=== PATIENT | female | born 1970 | race Caucasian/White ===

== ENCOUNTER 2022-12-24 10:15 | Outpatient (OUT) | payer OTHER, SELFPAY ==
[2022-12-24 10:48] LABS: Basophils Absolute Auto 0.1 10^3/uL (0.0-0.1); Basophils Percent Auto 1.7 % (0.2-2.0); Eosinophils Absolute Auto 0.4 10^3/uL (0.0-0.7); Hematocrit 41.1 % (36.0-48.0); Hemoglobin 14.1 g/dL (12.0-16.0); Immature Granulocytes Abs Auto 0.02 10^3/uL (0.00-0.03); Immature Granulocytes Pct Auto 0.3 % (0.0-0.5); Lymphocytes Absolute Auto 2.2 10^3/uL (1.2-3.8); Lymphocytes Percent Auto 36.1 % (20.5-60.0); Mean Corpuscular HGB Conc 34.3 g/dL (29.9-35.2); Mean Corpuscular Hemoglobin 31.9 pg (26.7-34.0); Mean Platelet Volume 9.6 fL (9.5-13.5); Monocytes Absolute Auto 0.5 10^3/uL (0.3-0.8); Monocytes Percent Auto 7.9 % (1.7-12.0); Neutrophils Absolute Auto 2.9 10^3/uL (1.4-6.5); Platelet Count 237 10^3/uL (150-450); Red Blood Count 4.42 10^6/uL (4.20-5.40); Red Cell Distribution Width 12.4 % (11.0-15.0)
[2022-12-24 11:31] LABS: Alanine Aminotransferase 66 U/L (14-59); Albumin Globulin Ratio 1.1; Albumin Level 4.3 g/dL (3.4-5.0); Alkaline Phosphatase 49 U/L (46-116); Anion Gap 17.3; Aspartate Amino Transferase 41 U/L (15-37); BUN Creatinine Ratio 17.3; Bilirubin Total 0.5 mg/dL (0.2-1.0); Calcium 9.4 mg/dL (8.5-10.1); Carbon Dioxide 20.6 mmol/L (21.0-32.0); Chloride 102 mmol/L (98-107); Chol HDL Ratio 6.2; Cholesterol 229 mg/dL (<=200); Estimated GFR (African America >60 (>=60); Estimated GFR (Non-African Ame 55 (>=60); Free Thyroxine Index 3.65 (1.30-4.50); Glucose 170 mg/dL (74-106); HDL Cholesterol 37 mg/dL (40-60); Potassium 3.9 mmol/L (3.5-5.1); Sodium 136 mmol/L (136-145); Thyroid Stimulating Hormone 4.021 uIU/mL (0.358-3.740); Total Protein 8.3 g/dL (6.4-8.2); Triglycerides 194 mg/dL (<=150); VLDL CHOLESTEROL 38.8 mg/dL
[2022-12-24 12:17] LABS: Estimated Average Glucose 131 mg/dL; Glycohemoglobin A1C 6.2 % (4.5-6.2)
== END 2022-12-24 10:16 | disposition home or self-care (01) ==
LOC: LAB 10:20
PROVIDERS: PCP Family Medicine; Visit Provider Family Medicine
DX: Z00.00 Encounter for general adult medical examination without abnormal findings (principal); E59 Dietary selenium deficiency
CPT/HCPCS: 36415; 80053; 80061; 82306; 83036; 83540; 84436; 84443; 84479; 85025

== ENCOUNTER 2024-02-10 10:48 | Outpatient (OUT) | payer OTHER, SELFPAY ==
--- NOTE | 2024-02-10 | XR_ITS ---
The [address] [address] Patient Name: MICHELLE SALMERON MRN: [id number] date: 1970 Sex: F Assigned Patient Location: Current Patient Location: Accession/Order Number: [id number] Exam Date: 02/10/2024 10:52 Report Date: 02/12/2024 07:35 At the request of: EVERETT GARCIA Procedure: XR hand RT min 3V PROCEDURE: XR hand RT min 3V COMPARISON: None. HISTORY: RIGHT HAND PAIN FINDINGS: BONES:No fracture, acute abnormality, or significant arthropathy. SOFT TISSUES:Negative. No visible soft tissue swelling. EFFUSION:None visible. OTHER: Negative. XR/XR hand RT min 3V IMPRESSION: No acute radiographic abnormality Electronically authenticated by: KAROL MEREDITH Date: 02/12/2024 07:35
== END 2024-02-10 10:49 | disposition home or self-care (01) ==
LOC: EC 10:48
PROVIDERS: PCP Family Medicine; Visit Provider Orthopaedic Surgery
DX: M79.641 Pain in right hand (principal)
CPT/HCPCS: 73130

== ENCOUNTER 2024-04-25 10:52 | Inpatient (IN) | payer OTHER, SELFPAY ==
[2024-04-25] VITALS (8 sets, daily range): BP systolic 142–155; BP diastolic 62–88; PULSE 80–129; TEMP 37.2–37.5; O2SAT 95–98; BMI 41.6; BMI 36.7
--- NOTE | 2024-04-25 11:43 | ED.GENADUL1 ---
HPI HPI - General Adult General Chief complaint: Skin/Abscess/Foreign Body Stated complaint: ABSCESS ON BACK/PAIN Time Seen by Provider: 04/25/24 11:01 Source: patient Mode of arrival: walk-in Limitations: no limitations History of Present Illness HPI narrative: The patient presented to the ER with a possible abscess to her lower back that she was evaluated for over the last 1 week 4 days ago by her primary care doctor, she mentioned her primary care doctor could not drain the abscess Patient has been on doxycycline for the last 4 days with no improvement Patient denies any nausea vomiting but she has been having a lot of pain almost 9 out of 10 in the back Patient have a history of chronic back pain with some incontinence due to MS but there is no increase in her chronic incontinence Patient denies any weakness numbness tingling down her legs Related Data Home Medications ?Medication ?Instructions ?Recorded ?Confirmed albuterol sulfate 90 mcg/actuation 2 inh inhalation Q6H PRN 04/25/24 04/25/24 aerosol inhaler bronchospasm cefdinir 300 mg capsule 300 mg PO Q12H 04/25/24 04/25/24 citalopram 20 mg tablet 20 mg PO DAILY 04/25/24 04/25/24 clonidine HCl 0.1 mg tablet 0.1 mg PO Q12H 04/25/24 04/25/24 doxycycline monohydrate 100 mg 100 mg PO Q12H 04/25/24 04/25/24 capsule glimepiride 4 mg tablet 4 mg PO DAILY 04/25/24 04/25/24 metformin 500 mg tablet 500 mg PO DAILY 04/25/24 04/25/24 oxybutynin chloride 10 mg 10 mg PO DAILY 04/25/24 04/25/24 tablet,extended release 24 hr pioglitazone 30 mg tablet 30 mg PO DAILY 04/25/24 04/25/24 Allergies Allergy/AdvReac Type Severity Reaction Status Date / Time codeine AdvReac Intermediate Hives Verified 04/25/24 10:55 Opioid HPI Opioid Management Most Recent Opioid Data: Last Pain Scale 8 04/25/24 12:12 04/25/24 Last MAR Pain Assessment 04/25/24 12:12 Review of Systems ROS Status of ROS 10 or more systems reviewed and unremarkable except as noted in history and below PFSH PFSH Social History Little interest or pleasure in doing things: not at all Feeling down, depressed, or hopeless: not at all Exam Narrative Exam Narrative: Nurses notes and vital signs reviewed and patient is not hypoxic.] Back exam: The patient have an area of redness almost 13 cm in diameter with the middle of it is exactly at the L1-L2 kind of level of the back there is no abscess to be drained there is no fluctuation just indurated skin and red, also hot General: Well-appearing and in no apparent distress. Skin: Warm, dry, no pallor noted. No rash. Head: Normocephalic, atraumatic. Neck: Supple, non-tender. Cardiovascular: Regular Rate and Rhythm without murmur, gallop or rub. Respiratory: No accessory muscle use or respiratory distress. Lungs are clear to auscultation, no wheezing, rales or rhonchi Chest Wall: no tenderness Musculoskeletal: normal ROM, no calf or popliteal tenderness, no lower extremity edema/swelling GI: Abdomen is soft, non-distended. Normal bowel sounds. No masses appreciated. No tenderness to palpation. No rebound, guarding, or rigidity noted. Neurological: A&O x4. No cranial nerve dysfunction observed. No truncal ataxia. Moves all extremities. Sensation intact. Psychiatric: Cooperative and interactive. Normal mood and affect. Constitutional Vital Signs, click to edit/add: Last Vital Signs Temp 99.4 F 04/25/24 15:00 Pulse 96 H 04/25/24 15:00 Resp 18 04/25/24 15:00 BP 142/62 H 04/25/24 15:00 Pulse Ox 96 04/25/24 15:00 O2 Del Method Room Air 04/25/24 15:00 Course Vital Signs Vital signs: Vital Signs Temperature 99.0 F 04/25/24 10:55 Pulse Rate 129 H 04/25/24 10:55 Respiratory Rate 18 04/25/24 10:55 Blood Pressure 153/88 H 04/25/24 10:55 Pulse Oximetry 98 04/25/24 10:55 Temperature 99.4 F 04/25/24 15:00 Pulse Rate 96 H 04/25/24 15:00 Respiratory Rate 18 04/25/24 15:00 Blood Pressure 142/62 H 04/25/24 15:00 Pulse Oximetry 96 04/25/24 15:00 Oxygen Delivery Method Room Air 04/25/24 15:00 Medical Decision Making MDM Narrative Medical decision making narrative: The patient upon arrival she is obviously coming with cellulitis with no improvement with p.o. antibiotic she had a blood culture obtained started back on Zosyn CBC shows leukocytosis of 14 chemistry shows no acute significant pathology Treated with Toradol and morphine for pain and she also had a CAT scan of the lumbar spine with IV contrast to make sure there is no abscess The patient will be admitted for IV antibiotic treatment as failed p.o. treatment with outpatient Patient case was discussed with Dr. Cain and he agrees with above-mentioned plan Lab Data Labs: Lab Results 04/25/24 Range/Units 11:46 WBC 14.0 H (4.0-11.0) 10^3/uL RBC 4.07 L (4.20-5.40) 10^6/uL Hgb 12.9 (12.0-16.0) g/dL Hct 37.8 (36.0-48.0) % MCV 92.9 (81.0-99.0) fL MCH 31.7 (26.7-34.0) pg MCHC 34.1 (29.9-35.2) g/dL RDW 11.9 (11.0-15.0) % Plt Count 289 (150-450) 10^3/uL MPV 10.4 (9.5-13.5) fL Neut % (Auto) 60.9 (43.0-75.0) % Lymph % (Auto) 24.9 (20.5-60.0) % [place] % (Auto) 6.8 (1.7-12.0) % Eos % (Auto) 3.3 (0.9-7.0) % Baso % (Auto) 1.2 (0.2-2.0) % Neut # (Auto) 8.5 H (1.4-6.5) 10^3/uL Lymph # (Auto) 3.5 (1.2-3.8) 10^3/uL [place] # (Auto) 1.0 H (0.3-0.8) 10^3/uL Eos # (Auto) 0.5 (0.0-0.7) 10^3/uL Baso # (Auto) 0.2 H (0.0-0.1) 10^3/uL Abs Immat Gran (auto) 0.40 H (0.00-0.03) 10^3/uL Imm/Tot Granulo (auto) 2.9 H (0.0-0.5) % PT 10.9 (9.0-11.6) sec INR 1.03 Sodium 138 (136-145) mmol/L Potassium 4.1 (3.5-5.1) mmol/L Chloride 100 (98-107) mmol/L Carbon Dioxide 20.3 L (21.0-32.0) mmol/L Anion Gap 21.8 BUN 24.0 H (7.0-18.0) mg/dL Creatinine 1.14 H (0.55-1.02) mg/dL Est GFR ( Amer) 60 (>=60 mL/min/1.73m^2) Est GFR (Non-Af Amer) 49 L (>=60 mL/min/1.73m^2) BUN/Creatinine Ratio 21.1 Glucose 368 H (74-106) mg/dL Lactate 1.2 (0.4-2.0) mmol/L Calcium 9.4 (8.5-10.1) mg/dL Total Bilirubin 0.7 (0.2-1.0) mg/dL AST 17 (15-37) U/L ALT 26 (14-59) U/L Alkaline Phosphatase 82 (46-116) U/L Total Protein 7.6 (6.4-8.2) g/dL Albumin 2.8 L (3.4-5.0) g/dL Globulin 4.8 g/dL Albumin/Globulin Ratio 0.6 Discharge Plan Discharge Chief Complaint: Skin/Abscess/Foreign Body Clinical Impression: Cellulitis Qualifiers: Site of cellulitis: trunk Site of cellulitis of trunk: back Qualified Code(s): L03.312 - Cellulitis of back [any part except buttock] Patient Disposition: Admitted As Inpatient Time of Disposition Decision: 15:13
[2024-04-25] MEDS: 0.9 % SODIUM CHLORIDE 1,000 ML 1000 ML IV (12:09)
[2024-04-25 12:10] LABS: Basophils Absolute Auto 0.2 10^3/uL (0.0-0.1); Basophils Percent Auto 1.2 % (0.2-2.0); Eosinophils Absolute Auto 0.5 10^3/uL (0.0-0.7); Eosinophils Percent Auto 3.3 % (0.9-7.0); Hematocrit 37.8 % (36.0-48.0); Hemoglobin 12.9 g/dL (12.0-16.0); Immature Granulocytes Pct Auto 2.9 % (0.0-0.5); Lymphocytes Absolute Auto 3.5 10^3/uL (1.2-3.8); Lymphocytes Percent Auto 24.9 % (20.5-60.0); Mean Corpuscular HGB Conc 34.1 g/dL (29.9-35.2); Mean Corpuscular Hemoglobin 31.7 pg (26.7-34.0); Mean Corpuscular Volume 92.9 fL (81.0-99.0); Mean Platelet Volume 10.4 fL (9.5-13.5); Monocytes Percent Auto 6.8 % (1.7-12.0); Neutrophils Absolute Auto 8.5 10^3/uL (1.4-6.5); Neutrophils Percent Auto 60.9 % (43.0-75.0); Platelet Count 289 10^3/uL (150-450); Red Blood Count 4.07 10^6/uL (4.20-5.40); Red Cell Distribution Width 11.9 % (11.0-15.0)
[2024-04-25] MEDS: KETOROLAC TROMETHAMINE 30 MG/ML VIAL 15 MG IVP ×2 (12:11→21:29)
[2024-04-25] MEDS: MORPHINE SULFATE 2 MG/ML SYRINGE IV ×2 (12:12→20:00)
[2024-04-25] MEDS: PIPERACILLIN SODIUM/TAZOBACTAM 4.5 GM in 0.9 % SODIUM CHLORIDE 50 ML IV (12:15)
[2024-04-25 12:20] LABS: INR 1.03; Prothrombin Time 10.9 sec (9.0-11.6)
[2024-04-25 12:27] LABS: Alanine Aminotransferase 26 U/L (14-59); Albumin Globulin Ratio 0.6; Albumin Level 2.8 g/dL (3.4-5.0); Alkaline Phosphatase 82 U/L (46-116); Anion Gap 21.8; Aspartate Amino Transferase 17 U/L (15-37); BUN Creatinine Ratio 21.1; Bilirubin Total 0.7 mg/dL (0.2-1.0); Calcium 9.4 mg/dL (8.5-10.1); Carbon Dioxide 20.3 mmol/L (21.0-32.0); Chloride 100 mmol/L (98-107); Estimated GFR (African America 60 (>=60 mL/min/1.73m^2); Estimated GFR (Non-African Ame 49 (>=60 mL/min/1.73m^2); Globulin 4.8 g/dL; Glucose 368 mg/dL (74-106); Potassium 4.1 mmol/L (3.5-5.1); Sodium 138 mmol/L (136-145); Total Protein 7.6 g/dL (6.4-8.2)
[2024-04-25 12:30] LABS: Lactate/Lactic Acid 1.2 mmol/L (0.4-2.0)
--- NOTE | 2024-04-25 12:33 | CT_ITS ---
The [address] [address] Patient Name: MICHELLE SALMERON MRN: [id number] date: 1970 Sex: F Assigned Patient Location: ER Current Patient Location: ER Accession/Order Number: [id number] Exam Date: 04/25/2024 13:05 Report Date: 04/25/2024 14:44 At the request of: RICK MCKOY Procedure: CT lumbar spine w con EXAM: CT lumbar spine w con HISTORY: Abscess and cellulitis at the upper lumbar area. COMPARISON: None. TECHNIQUE: Dose reduction techniques were achieved by using automated exposure control and/or adjustment of mA and/or kV according to patient size and/or use of iterative reconstruction technique. CT of the lumbar spine with contrast. FINDINGS: Vertebral body height is preserved. Anterolisthesis of L5 on S1 measuring 1.4 cm from bilateral L5 pars defects. Bilateral severe L5-S1 neural foraminal narrowing. No significant neural foraminal narrowing extending from T11-T12 through L4-L5. Transitional S1 vertebral body with rudimentary S1-S2 disc. No acute fractures. Mild degeneration of the sacroiliac joints. Atherosclerotic calcification of the abdominal aorta. Nonspecific subcutaneous soft tissue edema posterior to the upper lumbar spine, may represent cellulitis. No abscess. CT/CT lumbar spine w con IMPRESSION: 1. No acute fracture. 2. Anterolisthesis of L5 on S1 measuring 1.4 cm from bilateral L5 pars defects. 3. Bilateral severe L5-S1 neural foraminal narrowing. 4. Nonspecific subcutaneous soft tissue edema posterior to the upper lumbar spine, may represent cellulitis. No abscess. 5. Other findings as described. Electronically authenticated by: DIYA PAYNE Date: 04/25/2024 14:44
[2024-04-25] MEDS: VANCOMYCIN HCL 1,000 MG in 0.9 % SODIUM CHLORIDE 250 ML 250 MG IV (14:23)
[2024-04-25] MEDS: LACTATED RINGER'S SOLUTION 1,000 ML 125 ML IV (17:10)
[2024-04-25] MEDS: ACETAMINOPHEN 325 MG TABLET 650 MG PO (19:56)
[2024-04-25 20:03] LABS: Glucometer 387 mg/dL (74-106)
[2024-04-25] MEDS: INSULIN ASPART 300 UNIT/3 ML PEN SUBQ (20:07)
[2024-04-25] MEDS: CLONIDINE HCL 0.1 MG TABLET PO (21:30)
--- NOTE | 2024-04-25 22:55 | P.HP_ITS ---
HPI H&P: HPI History of Present Illness Chief complaint: ABSCESS ON BACK/PAIN CELLULITIS TO BACK Narrative: 53 y o female with hx of T2DM, HTN and Major Depression presented to a skin lesion on her back that started as a small bump about pea sized about a week ago. It progressively got worse with increase in size, induration, tenderness along with purulent discharge. She saw her PCP 4 days ago who performed outpatient I&D with mild purulent discharge and prescribed her oral Doxycycline for Cellulitis. Over the past 4 days, her pain, size of erythema got worse and is now about 15 cm in diameter, circular in shape, with discrete margins. Patient denies skin trauma, insect bite and prior hx of Cellulitis. Patient repots that last night she was feeling febrile and had chills. She denies nausea or vomiting. Work up in ED revealed sinus tachycardia along with leukocytosis. Given her hx of T2DM, and the fact that she failed outpatient oral abx, she was admitted for observation for IVF and IV abx. Opioid HPI Opioid Management Most Recent Pain and Opioid Data: Last Pain Scale 6 04/25/24 21:29 04/25/24 Last Pain Assessment 04/25/24 22:00 Last ORT Total Score 1 04/25/24 16:20 04/25/24 Last ORT Risk Category Low Risk 04/25/24 16:20 04/25/24 Review of Systems ROS Status of ROS 10 or more systems reviewed and unremark able except as noted in history and below [facility] Medical History (Updated 04/25/24 @ 23:04 by Shaikh Ant MD) Depression ?F32.A - Depression, unspecified (ICD-10) Multiple sclerosis ?G35 - Multiple sclerosis (ICD-10) Diabetes ?E11.9 - Type 2 diabetes mellitus without complications (ICD-10) Hypertension ?I10 - Essential (primary) hypertension (ICD-10) Surgical History (Updated 04/25/24 @ 16:29 by Arleen Srinivasan) History of cholecystectomy ?Z90.49 - Acquired absence of other specified parts of digestive tract (ICD- 10) Family History (Updated 04/25/24 @ 16:30 by Arleen Srinivasan) Father Family history of CHF (congestive heart failure) Family history of diabetes mellitus Family history of hypertension Family history of myocardial infarction Family history of stroke Brother Family history of cancer Family history of diabetes mellitus Family history of hypertension Mother Family history of cancer Family history of diabetes mellitus Family history of hypertension Grandfather Family history of stroke Social History (Updated 04/25/24 @ 16:31 by Arleen Srinivasan) Within the past year, how often did you have a drink containing alcohol: never Score interpretation: A score less than 3 is consistent with normal alcohol consumption. Smoking status: Never smoker Non-prescribed substance use: cannabis (any form) Non-prescribed substance use details: edibles Previous occupational history: disabled Highest level of school completed/degree received: some college, no degree Are you now , , , , never or living with a partner: In a typical week, how many times do you talk on the telephone with family, friends, or neighbors: 3 or more times per week How often do you get together with friends or relatives: 3 or more times per week How often do you attend druze or rastafarian services: never Do you belong to any clubs or organizations such as druze groups unions, [employer] or athletic groups, or school groups: no Total score: 1 Score interpretation: A score of less than or equal to 1 indicates the most socially isolated. Little interest or pleasure in doing things: not at all Feeling down, depressed, or hopeless: not at all Feel stressed/tense/nervous/anxious/difficulty sleeping: not at all Meds Home Medications and Allergies Home Medications ?Medication ?Instructions ?Recorded ?Confirmed ?Type albuterol sulfate 90 mcg/actuation 2 inh inhalation Q6H PRN 04/25/24 04/25/24 History aerosol inhaler bronchospasm cefdinir 300 mg capsule 300 mg PO Q12H 04/25/24 04/25/24 History citalopram 20 mg tablet 20 mg PO DAILY 04/25/24 04/25/24 History clonidine HCl 0.1 mg tablet 0.1 mg PO Q12H 04/25/24 04/25/24 History doxycycline monohydrate 100 mg 100 mg PO Q12H 04/25/24 04/25/24 History capsule glimepiride 4 mg tablet 4 mg PO DAILY 04/25/24 04/25/24 History metformin 500 mg tablet 500 mg PO DAILY 04/25/24 04/25/24 History oxybutynin chloride 10 mg 10 mg PO DAILY 04/25/24 04/25/24 History tablet,extended release 24 hr pioglitazone 30 mg tablet 30 mg PO DAILY 04/25/24 04/25/24 History Allergies Allergy/AdvReac Type Severity Reaction Status Date / Time codeine AdvReac Intermediate Hives Verified 04/25/24 10:55 Exam Constitutional Vital Signs, click to edit/add: Last Vital Signs Temp 99.1 F 04/25/24 21:36 Pulse 80 04/25/24 20:00 Resp 18 04/25/24 20:00 BP 155/65 H 04/25/24 21:30 Pulse Ox 95 04/25/24 20:46 O2 Del Method Room Air 04/25/24 20:46 Documenting provider has reviewed patient's vital signs: yes Common normals: no apparent distress and oriented x3 General appearance: cooperative Eye Common normals: conjunctivae normal and no scleral icterus Conjunctiva: conjunctiva(e) normal Respiratory Common normals: normal respiratory effort and clear to auscultation bilaterally Effort & inspection: able to speak in complete sentences Auscultation: clear to auscultation bilaterally Cardio Common normals: regular rate, S1 normal heart sound and S2 normal heart sound Rate: regular rate Heart sounds: S1 normal and S2 normal GI Common normals: Normal to inspection, nondistended, normoactive bowel sounds present, soft to palpation, non-tender and no hepatosplenomegaly Palpation: soft and no hepatosplenomegaly Back & Pelvis General back: erythema, warmth and tenderness Other: Circular discreet region over upper lumbar region in midline. Area is about 15 cm in diameter, tender, with indurated skin. Extremity Common normals: no clubbing, cyanosis or edema Neuro Common normals: oriented x3, moves all extremities and no focal motor deficits Psych Common normals: mental status grossly normal, denies hallucinations, denies homicidal ideation and denies suicidal ideation Results Labs Labs: Short CBC 04/25/24 Range/Units 11:46 WBC 14.0 H (4.0-11.0) 10^3/uL Hgb 12.9 (12.0-16.0) g/dL Hct 37.8 (36.0-48.0) % Plt Count 289 (150-450) 10^3/uL BMP 04/25/24 11:46 Sodium 138 Potassium 4.1 Chloride 100 Carbon Dioxide 20.3 L BUN 24.0 H Creatinine 1.14 H Glucose 368 H Calcium 9.4 Liver Function 04/25/24 Range/Units 11:46 Total Bilirubin 0.7 (0.2-1.0) mg/dL AST 17 (15-37) U/L ALT 26 (14-59) U/L Alkaline Phosphatase 82 (46-116) U/L Albumin 2.8 L (3.4-5.0) g/dL Assessment and Plan Assessment and Plan (1) Cellulitis: Assessment and Plan: Cellulitis of back, worse despite treatment with oral abx. Patient reports fever, chills. Has leukocytosis with WBC count of 14k. Patient started on IV vancomycin/zosyn. No abscess on CT scan. C/w IVF. F/u blood cx. Qualifiers: Site of cellulitis: trunk Site of cellulitis of trunk: back Qualified Code(s): L03.312 - Cellulitis of back [any part except buttock] (2) Diabetes: Assessment and Plan: On oral hypoglycemics as outpatient. SSI while inpatient. 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 IV hydralazine as needed. Qualifiers: Hypertension type: primary hypertension Qualified Code(s): I10 - Essential (primary) hypertension (4) Depression: Assessment and Plan: Stable mood. No SI/HI. Qualifiers: Depression Type: major depressive disorder Major depression recurrence: recurrent Active/Remission status: in full remission Qualified Code(s): F33.42 - Major depressive disorder, recurrent, in full remission
[2024-04-26] MEDS: PIPERACILLIN SODIUM/TAZOBACTAM 3.375 GM in 0.9 % SODIUM CHLORIDE 50 ML IV ×4 (00:21→22:44)
[2024-04-26] MEDS: LACTATED RINGER'S SOLUTION 1,000 ML 125 ML IV ×2 (00:22→08:35)
[2024-04-26 04:44] VITALS: BP 138/90; PULSE 111; TEMP 37.4; O2SAT 94
[2024-04-26 06:18] LABS: Basophils Absolute Auto 0.1 10^3/uL (0.0-0.1); Eosinophils Absolute Auto 0.5 10^3/uL (0.0-0.7); Hemoglobin 10.9 g/dL (12.0-16.0); Immature Granulocytes Abs Auto 0.33 10^3/uL (0.00-0.03); Immature Granulocytes Pct Auto 2.8 % (0.0-0.5); Lymphocytes Absolute Auto 4.1 10^3/uL (1.2-3.8); Lymphocytes Percent Auto 33.9 % (20.5-60.0); Mean Corpuscular HGB Conc 34.1 g/dL (29.9-35.2); Mean Corpuscular Hemoglobin 31.6 pg (26.7-34.0); Mean Corpuscular Volume 92.8 fL (81.0-99.0); Monocytes Absolute Auto 0.8 10^3/uL (0.3-0.8); Monocytes Percent Auto 6.9 % (1.7-12.0); Neutrophils Absolute Auto 6.2 10^3/uL (1.4-6.5); Neutrophils Percent Auto 51.4 % (43.0-75.0); Platelet Count 190 10^3/uL (150-450); Red Blood Count 3.45 10^6/uL (4.20-5.40)
[2024-04-26 06:40] LABS: Alanine Aminotransferase 31 U/L (14-59); Albumin Globulin Ratio 0.5; Albumin Level 2.1 g/dL (3.4-5.0); Alkaline Phosphatase 79 U/L (46-116); Anion Gap 15.5; Aspartate Amino Transferase 23 U/L (15-37); BUN Creatinine Ratio 23.8; Bilirubin Total 0.5 mg/dL (0.2-1.0); Calcium 8.7 mg/dL (8.5-10.1); Carbon Dioxide 21.7 mmol/L (21.0-32.0); Chloride 104 mmol/L (98-107); Estimated GFR (African America >60 (>=60 mL/min/1.73m^2); Estimated GFR (Non-African Ame 57 (>=60 mL/min/1.73m^2); Globulin 4.1 g/dL; Glucose 270 mg/dL (74-106); Potassium 4.2 mmol/L (3.5-5.1); Sodium 137 mmol/L (136-145); Total Protein 6.2 g/dL (6.4-8.2)
[2024-04-26] MEDS: MORPHINE SULFATE 2 MG/ML SYRINGE IV (07:41)
[2024-04-26] MEDS: CITALOPRAM HYDROBROMIDE 20 MG TABLET PO (08:35)
[2024-04-26] MEDS: OXYBUTYNIN CHLORIDE 5 MG TAB XL 10 MG PO (08:35)
[2024-04-26] MEDS: CLONIDINE HCL 0.1 MG TABLET PO ×2 (08:35→21:35)
[2024-04-26] MEDS: ENOXAPARIN SODIUM 40 MG/0.4 ML SYRINGE SUBQ (08:35)
[2024-04-26] MEDS: INSULIN ASPART 300 UNIT/3 ML PEN SUBQ ×3 (08:42→16:35)
[2024-04-26 08:52] VITALS: BP 138/82; PULSE 97; TEMP 37; O2SAT 98
--- NOTE | 2024-04-26 09:01 | P.PN_ITS ---
Progress Note: Subjective Subjective Interval history: Patient significant pain in her back, erythema appears to be slightly spread from initial admission Exam Constitutional Vital Signs, click to edit/add: Last Vital Signs Temp 98.6 F 04/26/24 08:52 Pulse 97 H 04/26/24 08:52 Resp 18 04/26/24 08:52 BP 138/82 04/26/24 08:52 Pulse Ox 98 04/26/24 08:52 O2 Del Method Room Air 04/26/24 08:52 Documenting provider has reviewed patient's vital signs: yes Common normals: apparent distress (Mild to moderate painful distress with movement) Chest Common normals: inspection of chest normal Respiratory Common normals: normal respiratory effort and no retractions Cardio Common normals: regular rate and regular rhythm GI Common normals: Normal to inspection, nondistended, normoactive bowel sounds present and soft to palpation Back & Pelvis Common normals: CVA tenderness (Area of previously drained abscess, significant erythema surrounding 5 ) Progress Note: Objective Labs Labs: Short CBC 04/25/24 04/26/24 Range/Units 11:46 06:06 WBC 14.0 H 12.0 H (4.0-11.0) 10^3/uL Hgb 12.9 10.9 L (12.0-16.0) g/dL Hct 37.8 32.0 L (36.0-48.0) % Plt Count 289 190 (150-450) 10^3/uL BMP 04/25/24 04/26/24 11:46 06:06 Sodium 138 137 Potassium 4.1 4.2 Chloride 100 104 Carbon Dioxide 20.3 L 21.7 BUN 24.0 H 24.0 H Creatinine 1.14 H 1.01 Glucose 368 H 270 H Calcium 9.4 8.7 Liver Function 04/25/24 04/26/24 Range/Units 11:46 06:06 Total Bilirubin 0.7 0.5 (0.2-1.0) mg/dL AST 17 23 (15-37) U/L ALT 26 31 (14-59) U/L Alkaline Phosphatase 82 79 (46-116) U/L Albumin 2.8 L 2.1 L (3.4-5.0) g/dL Progress Note: A&P Assessment and Plan (1) Cellulitis: Qualifiers: Site of cellulitis: trunk Site of cellulitis of trunk: back Qualified Code(s): L03.312 - Cellulitis of back [any part except buttock] (2) Diabetes: Qualifiers: Diabetes mellitus complication status: without complication 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 Having increasing pain, leukocytosis, uncontrolled hypertension, tachycardia, uncontrolled diabetes mellitus, no significant increase in swelling presented to emergency room and found to have significant progression of cellulitis from the initial sebaceous cyst drainage. She has been on cefdinir and doxycycline, failed outpatient management, also mild dehydration Cellulitis with significant leukocytosis: Will place [place] around cellulitis, appears to be maybe slightly worse than admission. Try to obtain culture, unable to obtain in office. Continue with current antibiotics, white blood cell count improved Diabetes: Currently poorly controlled, secondary to the cellulitis and progression despite antibiotic therapy, increase sliding scale, restart home medications Hypertension: Poorly controlled on admission-improved currently. Mild dehydration-BUN and creatinine slightly elevated on admission improved today. Will saline lock, may need to reinstitute fluid therapy based on sugars and renal function affected by IV antibiotic choices Depression: Continue with home medications Morbid obesity-diet management Moderate protein calorie malnutrition-patient has had some significant weight loss recently, low albumin currently. Diet management Asthma-continue with home medications Bladder spasms-continue with home medications Admission status: Patient was placed in observational status yesterday. Erythema appears to be slightly spread and pain is not improved, having failed the outpatient time. Will change patient to inpatient status she is likely here 2-3 more days. Medically necessary treatment will span more than 2 midnights.
[2024-04-26] MEDS: KETOROLAC TROMETHAMINE 30 MG/ML VIAL 15 MG IVP ×3 (10:17→21:49)
[2024-04-26] MEDS: PIOGLITAZONE 15 MG TABLET 30 MG PO (10:17)
[2024-04-26 10:28] VITALS: O2SAT 97
[2024-04-26 12:34] LABS: Glucometer 203 mg/dL (74-106)
[2024-04-26] MEDS: VANCOMYCIN HCL 1,000 MG in 0.9 % SODIUM CHLORIDE 250 ML 250 MG IV (15:11)
[2024-04-26 15:26] VITALS: BP 140/65; PULSE 98; TEMP 37.6; O2SAT 95
[2024-04-26 16:40] LABS: Glucometer 309 mg/dL (74-106)
[2024-04-26] MEDS: OXYCODONE HCL 5 MG TABLET PO (18:28)
[2024-04-26] MEDS: ACETAMINOPHEN 500 MG TABLET 1000 MG PO (18:28)
[2024-04-26 19:46] VITALS: BP 107/72; PULSE 87; TEMP 36.8; O2SAT 95
[2024-04-26 19:53] VITALS: O2SAT 99
[2024-04-26 19:56] LABS: Glucometer 105 mg/dL (74-106)
[2024-04-27] VITALS (7 sets, daily range): BP systolic 136–185; BP diastolic 77–100; PULSE 78–97; TEMP 36.6–37.1; O2SAT 95–98; BMI 36.7
[2024-04-27] MEDS: VANCOMYCIN HCL 1,000 MG in 0.9 % SODIUM CHLORIDE 250 ML 200 MG IV (01:26)
[2024-04-27] MEDS: KETOROLAC TROMETHAMINE 30 MG/ML VIAL 15 MG IVP (02:51)
[2024-04-27] MEDS: PIPERACILLIN SODIUM/TAZOBACTAM 3.375 GM in 0.9 % SODIUM CHLORIDE 50 ML IV ×3 (05:21→22:23)
[2024-04-27 06:17] LABS: Basophils Absolute Auto 0.1 10^3/uL (0.0-0.1); Basophils Percent Auto 1.2 % (0.2-2.0); Eosinophils Absolute Auto 0.4 10^3/uL (0.0-0.7); Eosinophils Percent Auto 4.7 % (0.9-7.0); Hematocrit 32.4 % (36.0-48.0); Hemoglobin 10.9 g/dL (12.0-16.0); Immature Granulocytes Pct Auto 4.3 % (0.0-0.5); Lymphocytes Absolute Auto 3.3 10^3/uL (1.2-3.8); Lymphocytes Percent Auto 35.6 % (20.5-60.0); Mean Corpuscular HGB Conc 33.6 g/dL (29.9-35.2); Mean Corpuscular Hemoglobin 31.5 pg (26.7-34.0); Mean Corpuscular Volume 93.6 fL (81.0-99.0); Monocytes Absolute Auto 0.6 10^3/uL (0.3-0.8); Monocytes Percent Auto 6.7 % (1.7-12.0); Neutrophils Absolute Auto 4.4 10^3/uL (1.4-6.5); Neutrophils Percent Auto 47.5 % (43.0-75.0); Platelet Count 222 10^3/uL (150-450); Red Blood Count 3.46 10^6/uL (4.20-5.40); Red Cell Distribution Width 12.1 % (11.0-15.0); White Blood Count 9.3 10^3/uL (4.0-11.0)
[2024-04-27 06:37] LABS: Anion Gap 14.9; Calcium 8.2 mg/dL (8.5-10.1); Carbon Dioxide 24.2 mmol/L (21.0-32.0); Chloride 107 mmol/L (98-107); Estimated GFR (African America 56 (>=60 mL/min/1.73m^2); Estimated GFR (Non-African Ame 47 (>=60 mL/min/1.73m^2); Glucose 221 mg/dL (74-106); Potassium 4.1 mmol/L (3.5-5.1); Sodium 142 mmol/L (136-145)
--- NOTE | 2024-04-27 07:39 | P.PN_ITS ---
Progress Note: Subjective Subjective Interval history: Patient notes still drainage and some pain in the back, itching more today. Exam Constitutional Vital Signs, click to edit/add: Last Vital Signs Temp 97.9 F 04/27/24 03:00 Pulse 85 04/27/24 03:00 Resp 18 04/27/24 03:00 BP 136/77 04/27/24 03:00 Pulse Ox 98 04/27/24 03:00 O2 Del Method Room Air 04/27/24 03:00 Documenting provider has reviewed patient's vital signs: yes Common normals: no apparent distress Respiratory Common normals: normal respiratory effort Cardio Common normals: regular rate and regular rhythm GI Common normals: Normal to inspection, nondistended, normoactive bowel sounds present Back & Pelvis Common normals: CVA tenderness (Wound now with erythema just inside the line of demarcation, improved ) Progress Note: Objective Labs Labs: Short CBC 04/27/24 Range/Units 06:06 WBC 9.3 (4.0-11.0) 10^3/uL Hgb 10.9 L (12.0-16.0) g/dL Hct 32.4 L (36.0-48.0) % Plt Count 222 (150-450) 10^3/uL BMP 04/27/24 06:06 Sodium 142 Potassium 4.1 Chloride 107 Carbon Dioxide 24.2 BUN 30.0 H Creatinine 1.20 H Glucose 221 H Calcium 8.2 L Progress Note: A&P Assessment and Plan (1) Cellulitis: Qualifiers: Site of cellulitis: trunk Site of cellulitis of trunk: back Qualified Code(s): L03.312 - Cellulitis of back [any part except buttock] (2) Diabetes: Qualifiers: Diabetes mellitus type: type 2 Diabetes mellitus mcc insulin use: without mcc use Diabetes mellitus complication status: without complication Qualified Code(s): E11.9 - Type 2 diabetes mellitus without complications (3) Hypertension: Qualifiers: Hypertension type: primary hypertension Qualified Code(s): I10 - Essential (primary) hypertension (4) Depression: Qualifiers: Depression Type: major depressive disorder Major depression recurrence: recurrent Active/Remission status: in full remission Qualified Code(s): F33.42 - Major depressive disorder, recurrent, in full remission Plan Admission findings: Patient with previously drained sebaceous cyst. Having increasing pain, leukocytosis, uncontrolled hypertension, tachycardia, uncontrolled diabetes mellitus, no significant increase in swelling presented to emergency room and found to have significant progression of cellulitis from the initial sebaceous cyst drainage. She has been on cefdinir and doxycycline, failed outpatient management, also mild dehydration Cellulitis with significant leukocytosis: Appears improved, maintain current antibiotics, given failed outpatient oral antibiotics of cefdinir and doxycycline, maintain Zosyn and vancomycin Diabetes: Currently poorly controlled, but better with restarting home med ications Hypertension: Poorly controlled on admission-improved currently. Mild dehydration-BUN and creatinine slightly elevated on admission and again today. Will flush with 1 L normal saline, DC Toradol Depression: Continue with home medications Morbid obesity-diet management Moderate protein calorie malnutrition-patient has had some significant weight loss recently, low albumin currently. Diet management Asthma-continue with home medications Bladder spasms-continue with home medications Admission status: Patient was placed in observational status yesterday. Erythema appears to be slightly spread and pain is not improved, having failed the outpatient time. Will change patient to inpatient status she is likely here 2-3 more days. Medically necessary treatment will span more than 2 midnights.
[2024-04-27] MEDS: PIOGLITAZONE 15 MG TABLET 30 MG PO (08:11)
[2024-04-27] MEDS: CLONIDINE HCL 0.1 MG TABLET PO ×2 (08:12→22:27)
[2024-04-27] MEDS: CITALOPRAM HYDROBROMIDE 20 MG TABLET PO (08:12)
[2024-04-27] MEDS: OXYBUTYNIN CHLORIDE 5 MG TAB XL 10 MG PO (08:12)
[2024-04-27] MEDS: GLIMEPIRIDE 2 MG TABLET 4 MG PO (08:12)
[2024-04-27] MEDS: 0.9 % SODIUM CHLORIDE 1,000 ML 500 ML IV (08:14)
[2024-04-27] MEDS: FLU VAC QS 2024(6MS UP)CEL/PF 60 MCG/0.5 ML SYRINGE IM (08:16)
--- NOTE | 2024-04-27 09:07 | W.PM.WC_ITS ---
Wound Consult Note Assessment and Plan (1) Cellulitis: Qualifiers: Site of cellulitis: trunk Site of cellulitis of trunk: back Qualified Code(s): L03.312 - Cellulitis of back [any part except buttock] (2) Diabetes: Qualifiers: Diabetes mellitus type: type 2 Diabetes mellitus long term care pharmacist insulin use: without long term care pharmacist use Diabetes mellitus complication status: without complication Qualified Code(s): E11.9 - Type 2 diabetes mellitus without com plications (3) Hypertension: Qualifiers: Hypertension type: primary hypertension Qualified Code(s): I10 - Essential (primary) hypertension (4) Depression: Qualifiers: Depression Type: major depressive disorder Major depression recurrence: recurrent Active/Remission status: in full remission Qualified Code(s): F33.42 - Major depressive disorder, recurrent, in full remission Plan Consult: Back wound Patient evaluated to for treatment of back wound. Patient states area started as a small area that was soft. Her doctor lanced it and then it got worse. Per her pictures and area that was marked on her back to show cellulitis, it has improved somewhat with size and erythema. It is draining a white, thick drainage. She does not want anything to cover it as the area is very tender. She has been using warm compresses and a heating pad and states this helps. Overall area measures [id number]. Did not probe area that is draining as it is a pin hole size currently. Patient is currently receiving IV antibiotics. No specific wound care recommended other than covering area with gauze if it begins to drain more just to keep things clean and protected from environment. Phillip Liriano RN, CWON
[2024-04-27 12:13] LABS: Glucometer 207 mg/dL (74-106)
[2024-04-27 14:41] LABS: Vancomycin Trough 11.4 ug/mL (5.0-20.0)
[2024-04-27] MEDS: VANCOMYCIN HCL 1,000 MG in 0.9 % SODIUM CHLORIDE 250 ML 250 MG IV (15:07)
[2024-04-27] MEDS: OXYCODONE HCL 5 MG TABLET PO ×2 (15:10→20:38)
[2024-04-27 16:09] LABS: Glucometer 172 mg/dL (74-106)
[2024-04-27] MEDS: INSULIN ASPART 300 UNIT/3 ML PEN SUBQ (22:31)
[2024-04-27 22:42] LABS: Glucometer 214 mg/dL (74-106)
[2024-04-28] VITALS: BP 165/89; PULSE 70; TEMP 36.8; O2SAT 97
[2024-04-28] MEDS: OXYCODONE HCL 5 MG TABLET PO (03:18)
[2024-04-28] MEDS: VANCOMYCIN HCL 1,250 MG in 0.9 % SODIUM CHLORIDE 250 ML 250 MG IV ×2 (03:19→13:15)
[2024-04-28] MEDS: PIPERACILLIN SODIUM/TAZOBACTAM 3.375 GM in 0.9 % SODIUM CHLORIDE 50 ML IV ×2 (05:01→13:15)
[2024-04-28 05:06] VITALS: BP 136/84; PULSE 94; TEMP 36.4; O2SAT 95
[2024-04-28 06:54] LABS: Basophils Absolute Auto 0.1 10^3/uL (0.0-0.1); Basophils Percent Auto 0.9 % (0.2-2.0); Eosinophils Absolute Auto 0.5 10^3/uL (0.0-0.7); Eosinophils Percent Auto 5.3 % (0.9-7.0); Hematocrit 31.1 % (36.0-48.0); Hemoglobin 10.5 g/dL (12.0-16.0); Immature Granulocytes Abs Auto 0.33 10^3/uL (0.00-0.03); Immature Granulocytes Pct Auto 3.8 % (0.0-0.5); Lymphocytes Absolute Auto 3.5 10^3/uL (1.2-3.8); Mean Corpuscular HGB Conc 33.8 g/dL (29.9-35.2); Mean Corpuscular Hemoglobin 31.7 pg (26.7-34.0); Mean Platelet Volume 10.2 fL (9.5-13.5); Monocytes Absolute Auto 0.6 10^3/uL (0.3-0.8); Monocytes Percent Auto 6.9 % (1.7-12.0); Neutrophils Absolute Auto 3.8 10^3/uL (1.4-6.5); Neutrophils Percent Auto 43.1 % (43.0-75.0); Platelet Count 229 10^3/uL (150-450); Red Blood Count 3.31 10^6/uL (4.20-5.40); Red Cell Distribution Width 12.1 % (11.0-15.0); White Blood Count 8.7 10^3/uL (4.0-11.0)
[2024-04-28 07:06] LABS: Anion Gap 14.4; BUN Creatinine Ratio 17.6; Calcium 8.1 mg/dL (8.5-10.1); Carbon Dioxide 24.3 mmol/L (21.0-32.0); Chloride 108 mmol/L (98-107); Estimated GFR (African America >60 (>=60 mL/min/1.73m^2); Estimated GFR (Non-African Ame 56 (>=60 mL/min/1.73m^2); Glucose 151 mg/dL (74-106); Potassium 3.7 mmol/L (3.5-5.1); Sodium 143 mmol/L (136-145)
[2024-04-28 07:24] LABS: Glucometer 151 mg/dL (74-106)
[2024-04-28 07:46] VITALS: BP 151/91; PULSE 94; TEMP 37.2; O2SAT 97
--- NOTE | 2024-04-28 07:56 | P.DS_ITS ---
DS: Providers Provider Date of admission: 04/25/24 16:07 Primary care physician: Sohan Elizondo MD Consults: 04/26/24 08:52 Consult to Wound Care Routine Consulting Provider: Phillip Liriano Reason for consultation: wound DS: Diagnosis Discharge Diagnosis (1) Cellulitis: Qualifiers: Site of cellulitis: trunk Site of cellulitis of trunk: back Qualified Code(s): L03.312 - Cellulitis of back [any part except buttock] (2) Diabetes: Qualifiers: Diabetes mellitus complication status: without complication Diabetes mellitus long-term insulin use: without long-term use Diabetes mellitus type: type 2 Qualified Code(s): E11.9 - Type 2 diabetes mellitus without complications (3) Hypertension: Qualifiers: Hypertension type: primary hypertension Qualified Code(s): I10 - Essential (primary) hypertension (4) Depression: Qualifiers: Active/Remission status: in full remission Depression Type: major depressive disorder Major depression recurrence: recurrent Qualified Code(s): F33.42 - Major depressive disorder, recurrent, in full remission Plan Admission findings: Patient with previously drained sebaceous cyst. Having increasing pain, leukocytosis, uncontrolled hypertension, tachycardia, uncontrolled diabetes mellitus, no significant increase in swelling presented to emergency room and found to have significant progression of cellulitis from the initial sebaceous cyst drainage. She has been on cefdinir and doxycycline, failed outpatient management, also mild dehydration Cellulitis with significant leukocytosis: Appears improved, maintain current antibiotics, given failed outpatient oral antibiotics of cefdinir and doxycycline, maintain Zosyn and vancomycin Diabetes: Currently poorly controlled, but better with restarting home medications Hypertension: Poorly controlled on admission-improved currently. Mild dehydration-BUN and creatinine slightly elevated on admission and again today. Will flush with 1 L normal saline, DC Toradol Depression: Continue with home medications Morbid obesity-diet management Moderate protein calorie malnutrition-patient has had some significant weight loss recently, low albumin currently. Diet management Asthma-continue with home medications Bladder spasms-continue with home medications Admission status: Patient was placed in observational status yesterday. Erythema appears to be slightly spread and pain is not improved, having failed the outpatient time. Will change patient to inpatient status she is likely here 2-3 more days. Medically necessary treatment will span more than 2 midnights. ? DS: Summary Hospital Course Hospital Course: Patient was seen and evaluated in the office several days prior to admission. She had a boil on her back that was lanced. She had no surrounding erythema just the boil itself. Purulent drainage was expressed, missed an opportunity to get cultures patient had syncopal episode culture not sent to hospital. Patient was started on cefdinir and doxycycline. Patient increasing pain, drainage persisted. With pain worsening she presented to the emergency room found to have cellulitis that was progressing from the area of the sebaceous cyst infection. CT scan showed no abscess. With failing outpatient treatment she was admitted for IV antibiotics Zosyn and vancomycin. She is tolerated those to currently. Her erythema is now is inside line of demarcation and her right blood cell count has returned to normal. At this point in time should be discharged to home with 7 days of IV antibiotics until cultures have returned. To try to make it once a day we will try vancomycin once a day and levofloxacin. Cultures hopefully back tomorrow and we will make further adjustments at that time. Medications see list. See me in the office in 3 days. Status at Discharge Overall status at discharge: patient is not back to baseline Time Spent with Patient Time attestation: Total time spent providing and/or coordinating discharge services: Time spent: greater than 30 minutes Exam Constitutional Vital Signs, click to edit/add: Last Vital Signs Temp 99.0 F 04/28/24 07:46 Pulse 94 H 04/28/24 07:46 Resp 16 04/28/24 07:46 BP 151/91 H 04/28/24 07:46 Pulse Ox 97 04/28/24 07:46 O2 Del Method Room Air 04/28/24 07:46 Documenting provider has reviewed patient's vital signs: yes Common normals: no apparent distress Respiratory Common normals: normal respiratory effort Cardio Common normals: regular rate and regular rhythm GI Common normals: Normal to inspection, nondistended, normoactive bowel sounds present Back & Pelvis Common normals: CVA tenderness (Wound now with erythema just inside the line of demarcation, improved ) DS: Data Data Completed and Pending Labs on day of discharge: Labs from last 24 hours 04/28/24 04/28/24 04/27/24 07:23 06:00 22:30 WBC 8.7 RBC 3.31 L Hgb 10.5 L Hct 31.1 L MCV 94.0 MCH 31.7 MCHC 33.8 RDW 12.1 Plt Count 229 MPV 10.2 Neut % (Auto) 43.1 Lymph % (Auto) 40.0 [place] % (Auto) 6.9 Eos % (Auto) 5.3 Baso % (Auto) 0.9 Neut # (Auto) 3.8 Lymph # (Auto) 3.5 [place] # (Auto) 0.6 Eos # (Auto) 0.5 Baso # (Auto) 0.1 Abs Immat Gran (auto) 0.33 H Imm/Tot Granulo (auto) 3.8 H Sodium 143 Potassium 3.7 Chloride 108 H Carbon Dioxide 24.3 Anion Gap 14.4 BUN 18.0 Creatinine 1.02 Est GFR ( Amer) >60 Est GFR (Non-Af Amer) 56 L BUN/Creatinine Ratio 17.6 Glucose 151 H Calcium 8.1 L Vancomycin Trough POC Glucose 151 H 214 H 04/27/24 04/27/24 04/27/24 16:07 14:07 12:09 WBC RBC Hgb Hct MCV MCH MCHC RDW Plt Count MPV Neut % (Auto) Lymph % (Auto) [place] % (Auto) Eos % (Auto) Baso % (Auto) Neut # (Auto) Lymph # (Auto) [place] # (Auto) Eos # (Auto) Baso # (Auto) Abs Immat Gran (auto) Imm/Tot Granulo (auto) Sodium Potassium Chloride Carbon Dioxide Anion Gap BUN Creatinine Est GFR ( Amer) Est GFR (Non-Af Amer) BUN/Creatinine Ratio Glucose Calcium Vancomycin Trough 11.4 POC Glucose 172 H 207 H Preliminary micro results at discharge 04/25/24 11:53 Blood Culture Result 2 - Preliminary Blood NO GROWTH AT 36-48 HOURS. FINAL TO FOLLOW. 04/25/24 11:46 Blood Culture Result 1 - Preliminary Blood NO GROWTH AT 36-48 HOURS. FINAL TO FOLLOW. Discharge Plan Discharge Disposition: Home, Self-Care Discharge Medications: New Vancomycin HCl 1250 MG 0.9 % Sodium Chloride [Sodium Chloride 0.9% 250 ml] 250 ML 250 mls/hr IV Q12H Ordered By: Sohna Elizondo MD Last Taken: 04/28/24 03:19 250 mls/hr Continued citalopram 20 mg tablet 20 mg PO DAILY clonidine HCl 0.1 mg tablet 0.1 mg PO Q12H albuterol sulfate 90 mcg/actuation HFA aerosol inhaler 2 inh INHALATION Q6H PRN (Reason: bronchospasm) glimepiride 4 mg tablet 4 mg PO DAILY metformin 500 mg tablet 500 mg PO DAILY oxybutynin chloride 10 mg tablet extended release 24hr 10 mg PO DAILY pioglitazone 30 mg tablet 30 mg PO DAILY methylphenidate HCl 54 mg tablet extended release 24hr 54 mg PO DAILY Discontinued cefdinir 300 mg capsule 300 mg PO Q12H doxycycline monohydrate 100 mg capsule 100 mg PO Q12H Print Language: Hungarian Forms: Portal Instructions
[2024-04-28] MEDS: GLIMEPIRIDE 2 MG TABLET 4 MG PO (09:08)
[2024-04-28] MEDS: OXYBUTYNIN CHLORIDE 5 MG TAB XL 10 MG PO (09:09)
[2024-04-28] MEDS: METHYLPHENIDATE HCL 54 MG 54 EACH PO (09:09)
[2024-04-28] MEDS: CLONIDINE HCL 0.1 MG TABLET PO (09:09)
[2024-04-28] MEDS: CITALOPRAM HYDROBROMIDE 20 MG TABLET PO (09:09)
[2024-04-28] MEDS: METFORMIN HCL 500 MG TABLET PO (09:09)
[2024-04-28] MEDS: PIOGLITAZONE 15 MG TABLET 30 MG PO (09:09)
--- NOTE | 2024-04-28 09:11 | CM.NOTE ---
Spoke with Karen in Pharmacy regarding Discharge medications for [facility]. Karen will speak with Dr. Elizondo and get back with me on discharge medication and dose.
[2024-04-28 11:07] VITALS: O2SAT 98
--- NOTE | 2024-04-28 11:09 | CM.NOTE ---
Discussed with pt about antibiotics being BID, pt verbalizes understanding and still would like to come to [facility] for administration. Doses provided by Karen (pharmacy) for discharge dosing.
--- NOTE | 2024-04-28 11:18 | CM.NOTE ---
Faxed [facility] form to centralized scheduling and copy taken to [facility] and also given to pt.
[2024-04-28 11:22] LABS: Glucometer 223 mg/dL (74-106)
[2024-04-28] MEDS: INSULIN ASPART 300 UNIT/3 ML PEN SUBQ (11:24)
--- NOTE | 2024-05-01 13:49 | CM.DCFOLLOWU ---
Person spoke with:patient How are you feeling?well How is your pain?none Did you understand your discharge instructions? yes Do you have any questions about your discharge instructions? no Were you given any prescriptions at discharge? [facility] patient Were you able to get your prescriptions filled? [facility] patient Do you understand how to take your medications as ordered?yes Do you have any questions about your follow up appointment and do you plan to keep your follow up appointment? no questions, follow up today at the PCP office now Is there anything else that you would like to discuss? no Questions/Comments/Concerns/Other:none
--- OUTSIDE RECORDS SUMMARY | 2024-05-07 11:46 | XMS_ITS | CCD ---
Author Organization [facility] Care Team Providers Care Software Developer Mid Level Name Role Phone Sebastien Elizondo Primary Care Physician [phone] VIOLETL, Genaro R Attending Unavailable NILL, Genaro R Attending Unavailable NILL, Genaro Sam Attending Unavailable NILL, Genaro Sam Attending Unavailable Hoy PROVIDERSebastien Referring Unavailabl e KATIANA PAHCECO Attending Unavailable HOY ., DR CROWE Primary Care Unavailable KATIANA PACHECO Admitting Unavailable KATIANA PACHECO Consulting Unavailable NILL ., DR LAM Admitting Unavailable NILL ., DR LAM Attending Unavailable NILL ., DR LAM Consulting Unavailable HOY ., DR CROWE Primary Care Unavailable NILL ., DR LAM Consulting Unavailable NILL ., DR LAM Admitting Unavailable NILL ., DR LAM Attending Unavailable HOY ., DR CROWE Primary Care Unavailable KATE DANGELO Consulting Unavailable HOY ., DR CROWE Admitting Unavailable HOY ., DR CROWE Attending Unavailable HOY ., DR CROWE Primary Care Unavailable HOY ., DR CROWE Primary Care Unavailable HOY ., DR CROWE Admitting Unavailable HOY ., DR CROWE Attending Unavailable HOY ., DR CROWE Primary Care Unavailable HOY ., DR CROWE Admitting Unavailable HOY ., DR CROWE Attending Unavailable HOY ., DR CROWE Primary Care Unavailable HOY ., DR CROWE Admitting Unavailable HOY ., DR CROWE Attending Unavailable HOY ., DR CROWE Consulting Unavailable [place], DR KAROL Washburn Consulting Unavailable Unavailable Unavailable Unavailable Allergies Allergy Classification Reported Allergen(s) Allergy Type Date of Onset Reaction(s) Facility (6 sources) Codeine; Translations: [Codeine] Drug Allergy 05-04-2013 Weal (disorder) [facility] Medications Current Medications Medication Drug Class(es) Dates Sig (Normalized) Sig (Original) citalopram 20 mg oral tablet (3 sources) Serotonin Reuptake Inhibitor Start: 01-03-2022 take 1 tablet by mouth once daily citalopram 20 mg Tab 20 mg = 1 tab(s), Oral, Daily, Refills(s) 0 Start Date: 01/03/22 Status: Ordered Start: 10-31-2017 take 20 mg by mouth once daily Citalopram Active 20 MG Oral Daily October 31, 2017 9:35am cloNIDine hydrochloride 0.1 mg oral tablet (3 sources) Central alpha-2 Adrenergic Agonist Start: 01-03-2022 take 1 tablet by mouth twice daily cloNIDine 0.1 mg tab 0.1 mg = 1 tab(s), Oral, BID, Refills(s) 0 Start Date: 01/03/22 Status: Ordered Start: 10-31-2017 take 0.1 mg by mouth twice nelly ly Clonidine Hcl Active 0.1 MG Oral Twice daily October 31, 2017 9:35am ferrous sulfate 325 mg oral tablet (1 source) Start: 10-31-2017 Ferrous Sulfate Active 325 MG Oral Every 48 hours October 31, 2017 9:38am 24 hr fesoterodine fumarate 8 mg extended release oral tablet (1 source) Start: 10-31-2017 Fesoterodine Active October 31, 2017 9:35am gabapentin 300 mg oral capsule (1 source) Anti-epileptic Agent Start: 10-31-2017 take 300 mg by mouth three times daily Gabapentin Active 300 MG Oral Three times daily October 31, 2017 9:35am glimepiride 4 mg oral tablet (3 sources) Sulfonylurea Start: 01-03-2022 take 2 tablets by mouth once daily glimepiride 4 mg Tab 8 mg = 2 tab(s), Oral, Daily, Refills(s) 0 Start Date: 01/03/22 Status: Ordered Start: 10-31-2017 take 4 mg by mouth o nce daily in the morning Glimepiride Active 4 MG Oral Every morning October 31, 2017 9:35am meloxicam 15 mg oral tablet (1 source) Nonsteroidal Anti-inflammatory Drug Start: 10-31-2017 take 15 mg by mouth once daily Meloxicam Active 15 MG Oral Daily October 31, 2017 9:38am metFORMIN hydrochloride 500 mg oral tablet (3 sources) Biguanide Start: 01-03-2022 take 2 tablets by mouth twice daily metformin 500 mg oral tablet 1,000 mg = 2 tab(s), Oral, BID, Refills(s) 0 Start Date: 01/03/22 Status: Ordered Start: 10-31-2017 take 1000 mg by mout h twice daily Metformin Active 1000 MG Oral Twice daily October 31, 2017 9:35am 24 hr methylphenidate hydrochloride 54 mg extended release oral tablet (3 sources) Central Nervous System Stimulant Start: 01-03-2022 take 1 tablet by mouth once daily in the morning Concerta 54 mg/24 hr oral tablet, extended release 54 mg = 1 tab(s), Oral, qAM, Refills(s) 0 Start Date: 01/03/22 Status: Ordered Start: 10-31-2017 take 54 mg by mouth once daily in the morning Methylphenidate Active 54 MG Oral Every morning October 31, 2017 9:35am 24 hr oxybutynin chloride 10 mg extended release oral tablet (2 sources) Cholinergic Muscarinic Antagonist Start: 01-03-2022 take 1 tablet by mouth once daily oxybutynin 10 mg ER Tab 10 mg = 1 tab(s), Oral, Daily, Refills(s) 0 Start Date: 01/03/22 Status: Ordered pioglitazone 30 mg oral tablet (3 sources) Peroxisome Proliferator Receptor alpha Agonist, Peroxisome Proliferator Receptor gamma Agonist, Thiazolidinedione Start: 01-03-2022 take 1 tablet by mouth once daily pioglitazone 30 mg Tab 30 mg = 1 tab(s), Oral, Daily, Refills(s) 0 Start Date: 01/03/22 Status: Ordered Start: 10-31-2017 take 15 mg by mouth once daily Pioglitazone Active 15 MG Oral Daily October 31, 2017 9:35am rOPINIRole 0.25 mg oral tablet (1 source) Nonergot Dopamine Agonist Start: 10-31-2017 Ropinirole Active TABLET October 31, 2017 9:38am Ventolin HFA 90 mcg/inh Aerosol (2 sources) Start: 01-03-2022 take 2 puff(s) by inhalation four times daily Ventolin HFA 90 mcg/inh Aerosol 2 puff(s), Inhalation, QID, Refill(s) 0 Start Date: 01/03/22 Status: Ordered Problems Active Problems Problem Classification Problem Date Documented Date Episodic/Chronic Anxiety disorders (2 sources) Anxiety 01-03-2022 Chronic Attention-deficit, conduct, and disruptive behavior disorders (2 sources) Attention deficit hyperactivity disorder, predominantly inattentive type 01-03-2022 Chronic Diabetes mellitus without complication (3 sources) Diabetes mellitus; Translations: [Type 2 diabetes mellitus without complications] Onset: 02-12-2022 01-03-2022 Chronic Diverticulosis and diverticulitis (3 sources) Diverticular disease; Translations: [Diverticulosis of large intestine without perforation or abscess without bleeding] Onset: 02-12-2022 01-03-2022 Chronic Essential hypertension (3 sources) Hypertensive disorder; Translations: [Essential (primary) hypertension] Onset: 02-12-2022 01-03-2022 Chronic Genitourinary symptoms and ill-defined conditions (2 sources) Urinary incontinence 01-03-2022 Chronic Headache; including migraine (4 sources) Migraine; Translations: [Tension-type headache] 01-03-2022 Chronic Multiple sclerosis (3 sources) Multiple sclerosis; Translations: [Multiple sclerosis] Onset: 02-12-2022 01-03-2022 Chronic Other and unspecified benign neoplasm (2 sources) History of polyp of colon 01-03-2022 Episodic Other and unspecified benign neoplasm (2 sources) Benign neoplasm of sigmoid colon; Translations: [Benign neoplasm of sigmoid colon] Onset: 02-21-2022 Episodic Other eye disorders (2 sources) Tear film insufficiency 01-03-2022 Episodic Other nutritional; endocrine; and metabolic disorders (1 source) Obese class II; Translations: [Body mass index (BMI) 37.0-37.9, adult] Onset: 01-16-2022 Chronic Other nutritional; endocrine; and metabolic disorders (2 sources) Body mass index 30+ - obesity 01-16-2022 Chronic Other nutritional; endocrine; and metabolic disorders (2 sources) Body mass index 40+ - severely obese 01-16-2022 Chronic Residual codes; unclassified (2 sources) Obstructive sleep apnea syndrome 01-03-2022 Chronic Residual codes; unclassified (1 source) Obstructive sleep apnea (adult) (pediatric); Translations: [OBSTRUCTIVE SLEEP APNEA] Onset: 02-12-2022 Chronic Residual codes; unclassified (2 sources) Insomnia 01-03-2022 Episodic Unclassified (2 sources) Patient encounter status 01-16-2022 Unclassified (1 source) CONTACT W/AND (SUSP) EXPOS COVID-19; Translations: [CONTACT W/AND (SUSP) EXPOS COVID-19] Onset: 02-09-2022 Past or Other Problems Problem Classification Problem Date Documented Da te Episodic/Chronic Hemorrhoids (3 sources) Internal hemorrhoids; Translations: [Residual hemorrhoidal skin tags] Onset: 02-12-2022 01-03-2022 Episodic Other aftercare (1 source) Other long filler cigar roller machine (current) drug therapy; Translations: [OTH USP CURRENT DRUG THERAPY] Onset: 02-12-2022 Episodic Other aftercare (1 source) half-way (current) use of oral hypoglycemic drugs; Translations: [CHAPTER RELATIONS ADMINISTRATOR USE ORAL HYPOGLYCEMIC DX] Onset: 02-12-2022 Episodic Other and unspecified benign neoplasm (1 source) Benign neoplasm of sigmoid colon; Translations: [BENIGN NEOPLASM OF SIGMOID COLON] Onset: 02-12-2022 Episodic Other screening for suspected conditions (not mental disorders or infectious disease) (10 sources) Screening for malignant neoplasm of colon done; Translations: [Encounter for screening for malignant neoplasm of colon] Onset: 01-16-2022 Episodic Residual codes; unclassified (1 source) Family history of malignant neoplasm of trachea, bronchus and lung; Translations: [FAM HX MALIG NEOPLSM TRACH BRON LNG] Onset: 02-22-2022 Episodic Residual codes; unclassified (1 source) Family history of leukemia; Translations: [FAMILY HISTORY OF LEUKEMIA] Onset: 02-22-2022 Episodic Residual codes; unclassified (1 source) Acquired absence of other specified parts of digestive tract; Translations: [ACQ ABSENCE OTH PART DIGESTV TRACT] Onset: 02-12-2022 Episodic Results Test Name Value Interpretation Reference Range Facility [facility] 05-17-2023 [facility] Telephone (PEDSC) MICHELLE SALMERON ([id number]) 1970 F Date Time Provider Department 05/17/23 BONY UREÑATN During your visit today, we recorded the following information about you: Allergies As of Date: 05/17/2023 (Not on File) Date Reviewed: Never Reviewed Problem List As Of Date: 05/17/2023 (None) Encounter Status:Closed by BONY UREÑA on 05/17/23 Normal [facility] PAP ACOG PANEL 2: 30 to 65on 03-04-2022 . . Normal [facility] Comment on above: Result Comment: Perf ormed at: WB Performed By: #### [id number] #### [facility] [address] [address] [address] Hollie Aldridge Age Gdln ACOG Testing 30-65 [facility] Comment on above: Performed By: #### [id number] #### [facility] [address] [address] [address] Hollie Aldridge DIAGNOSIS: Comment Normal [facility] Comment on above: Result Comment: NEGA TIVE FOR INTRAEPITHELIAL LESION OR MALIGNANCY. Performed at: WB Performed By: #### [id number] #### [facility] [address] [place] [address] Dr. Hollie Aldridge HPV Aptima Negative Normal Negative [facility] Comment on above: Result Comment: This nucleic acid amplification test detects fourteen high-risk HPV types (16,18,31,33,35,39,45,51,52,56,58,59,66,68) without differentiation. Performed at: =G Performed By: #### [id number] #### [facility] [address] [place] [address] Dr. Hollie Aldridge Methodology: Comment Normal [facility] Comment on above: Result Comment: This liquid based ThinPrep(R) pap test was screened with the use of an image guided system. Performed at: WB Performed By: #### [id number] #### [facility] [address] [address] [address] Hollie Aldridge Note: Comment Normal [facility] Comment on above: Result Comment: The Pap smear is a screening test designed to aid in the detection of premalignant and malignant conditions of the uterine cervix. It is not a diagnostic procedure and should not be used as the sole means of detecting cervical cancer. Both false-positive and false-negative reports do occur. . Performed at: WB Performed By: #### [id number] #### [facility] [address], [place] [address] Dr. Hollie Aldridge Performed by: Comment Normal [facility] Comment on above: Result Comment: Veronica Brown, Color Coater (ASCP) Performed at: WB Performed By: #### [id number] #### [facility] [address], [place] [address] Dr. Hollie Aldridge Specimen adequacy: Comment Normal [facility] Comment on above: Result Comment: Sati sfactory for evaluation. Endocervical and/or squamous metaplastic cells (endocervical component) are present. Performed at: WB Performed By: #### [id number] #### [facility] [address] [address] [address] Hollie Aldridge Ambulatory Visit Summaryon 0 02-21-2022 Ambulatory Visit Summary MICHELLE SALMERON :1970 Visit Date:02/21/2022 Ambulatory Visit Instructions Your Diagnosis Benign neoplasm of sigmoid colon Your Care Team Attending Physician - CATY BUSTAMANTE, Genaro Sam Primary Care Physician - Mikhail BUSTAMANTE, Sebastien This Is Your Medications List Contact prescribing physician if questions or concerns albuterol (Ventolin HFA 90 mcg/inh Aerosol) citalopram (citalopram 20 mg Tab) clonidine (cloNIDine 0.1 mg tab) glimepiride (glimepiride 4 mg Tab) metformin (metformin 500 mg oral tablet) methylphenidate (Concerta 54 mg/24 hr oral tablet, extended release) oxybutynin (oxybutynin 10 mg ER Tab) pioglitazone (pioglitazone 30 mg Tab) Procedures Performed Colonoscopy (02/07/2022), Colonoscopy (03/12/2011), section (1995), section (1992), Cholecystectomy. Medications What How Much When Instructions Unchanged albuterol (Ventolin HFA 90 mcg/ inh Aerosol) 2 Puffs Inhalation 4 times a day Contact prescribing physician if questions or concerns Unchanged citalopram (citalopram 20 mg Tab) 1 Tablets By Mouth Every day Contact prescribing physician if questions or concerns Unchanged clonidine (cloNIDine 0.1 mg tab) 1 Tablets By Mouth 2 times a day Contact prescribing physician if questions or concerns Unchanged glimepiride (glimepiride 4 mg Tab) 2 Tablets By Mouth Every day Contact prescribing physician if questions or concerns Unchanged metformin (metformin 500 mg oral tablet) 2 Tablets By Mouth 2 times a day Contact prescribing physician if questions or concerns Unchanged methylphenidate (Concerta 54 mg/ 24 hr oral tablet, extended release) 1 Tablets By Mouth Once a day (in the morning) Contact prescribing physician if questions or concerns Unchanged oxybutynin (oxybutynin 10 mg ER Tab) 1 Tablets By Mouth Every day Contact prescribing physician if questions or concerns Unchanged pioglitazone (pioglitazone 30 mg Tab) 1 Tablets By Mouth Every day Contact prescribing physician if questions or concerns Allergies codeine (Hives) Problems Ongoing - Any problem that you are currently receiving treatment for. ADD (attention deficit disorder) Anxiety Bladder incontinence BMI 37.0-37.9, adult BMI 40.0-44.9, adult Diabetes Diverticulosis Dry eye syndrome History of colon polyps HTN (hypertension) Insomnia Internal hemorrhoids Migraine MS (multiple sclerosis) ELOISE (obstructive sleep apnea) Screening for malignant neoplasm of colon Tension headache Tubular adenoma of colon Normal [facility] General Surgery Office/Clini c Noteon 02-21-2022 General Surgery Office/Clinic Note Chief Complaint colonoscopy follow up HPI Staff 14 day post operative follow up post colonoscopy with sigmoid polypectomy. History of Present Illness 2 weeks s/p colonoscopy with polypectomy; doing well, denies abdominal pain or blood in stools; colonoscopy with sigmoid diverticulosis, small tubular adenoma removed from sigmoid colon. Review of Systems ROS - Provider Constitutional: no fever, no sweats, no weight loss. Eyes: no glasses, no blurred vision, no visual loss. ENMT: no dentures, no hoarseness, no swallowing difficulties, no hearing loss, no ear infection(s), no nose bleeds. Cardiovascular: normal blood pressure, no chest pain, regular heartbeat, no heart murmur. Respiratory: no shortness of breath, no cough, no asthma, no wheezing. Gastrointestinal: no nausea, no vomiting, no diarrhea, no constipation, no blood in stool, no change in bowel habits, no abdominal pain, no hepatitis. Genitourinary: no kidney stones, no urine infection, no dysuria. Musculoskeletal: no pain, no weakness. Skin: no changing moles, no rash, no skin lumps. Neurologic: no seizures, no epilepsy, no headache. Psychiatric: no emotional or psychiatric problem. Heme/Lymph: no bleeding problems, no anemia, no blood clots, no transfusions. Allergy/Immunologic: no swollen lymph nodes/glands, no IV drug abuse. Other: Additional ROS info: Except as noted in the above Review of Systems and in the History of Present Illness, all other systems have been reviewed and are negative or noncontributory. Assessment/Plan 1. Benign neoplasm of sigmoid colon (D12.5: Benign neoplasm of sigmoid colon) recommend surveillance colonoscopy in 5 years; call sooner if problems/questions. Follow-up No qualifying data available Problem List/Past Medical History Ongoing ADD (attention deficit disorder) Anxiety Bladder incontinence BMI 37.0-37.9, adult BMI 40.0-44.9, adult Diabetes Diverticulosis Dry eye syndrome History of colon polyps HTN (hypertension) Insomnia Internal hemorrhoids Migraine MS (multiple sclerosis) ELOISE (obstructive sleep apnea) Screening for malignant neoplasm of colon Tension headache Tubular adenoma of colon Historical No qualifying data Procedure/Surgical History Colonoscopy (02/07/2022), Colonoscopy (03/12/2011), section (1995), section (1992), Cholecystectomy. Medications citalopram 20 mg Tab, 20 mg= 1 tab(s), Oral, Daily cloNIDine 0.1 mg tab, 0.1 mg= 1 tab(s), Oral, BID Concerta 54 mg/24 hr oral tablet, extended release, 54 mg= 1 tab(s), Oral, qAM glimepiride 4 mg Tab, 8 mg= 2 tab(s), Oral, Daily metformin 500 mg oral tablet, 1000 mg= 2 tab(s), Oral, BID oxybutynin 10 mg ER Tab, 10 mg= 1 tab(s), Oral, Daily pioglitazone 30 mg Tab, 30 mg= 1 tab(s), Oral, Daily Ventolin HFA 90 mcg/inh Aerosol, 2 puff(s), Inhalation, QID Allergies codeine (Hives) Social History Alcohol - Denies Alcohol Use, 01/16/2022 Substance Abuse - Denies Substance Abuse, 01/16/2022 Tobacco Never (less than 100 in lifetime) Tobacco Use:. Never Smokeless Tobacco Use:., 01/16/2022 Family History Diabetes mellitus type 2: Mother, Father and Brother. Heart disease: Father. Hypertension: Mother and Father. Leukemia: Brother. Primary malignant neoplasm of lung: Mother. Renal failure syndrome: Father and Brother. Normal [facility] Comment on above: Result Comment: Elec tronically Signed By: CATY BUSTAMANTE, Genaro Amin\Date and Time Signed: 02/21/22 13:37 EDT Reminderson 02-21-2022 Reminders - From: Josselyn Sterling LPN To: N - Clinical; Sent: 02/21/2022 13:08:48 EDT Show up: 01/07/2027 07:00:00 EDT Subject: colonoscopy recall Due Date/Time: 02/07/2027 07:00:00 EDT Reminder/Recall Patient is due for colonoscopy 02/07/2027 due to history of tubular adenoma. Normal [facility] T4, T3U, FTI LABCORPon 02-21 Free Thyroxine Index 2.4 Normal 1.2-4.9 [facility] Comment on above: Performed By: #### T HYLC #### [facility] [address] [address] [address] Hollie Alrdidge T3 Uptake 22 % Critically low 24-39 [facility] Comment on above: Performed By: #### T HYLC #### [facility] [address] [address] [address] Hollie Aldridge T4 [Mass/Vol] 10.8 ug/dL Normal 4.5-12.0 [facility] Comment on above: Performed By: #### T HYLC #### [facility] [address] [address] [address] Hollie Aldridge CBC AUTO DIFFon 02-20-2022 BASO # 0.1 103/ul Normal 0.0-0.1 [facility] Comment on above: Performed By: #### C BC #### [facility] [address] [place] [address] Dr. Hollie Aldridge Basophils/100 WBC (Bld) 1.5 % Normal 0.2-2.0 [facility] Comment on above: Performed By: #### C BC #### [facility] [address] [place] [address] Dr. Hollie Aldridge EO # 0.3 103/ul Normal 0.0-0.[address] [facility] Comment on above: Performed By: #### C BC #### [facility] [address] [place] [address] Dr. Hollie Aldridge Eosinophils/100 WBC (Bld) 5.4 % Normal 0.9-7.[address] [facility] Comment on above: Performed By: #### C BC #### [facility] [address] [place] [address] Dr. Hollie Aldridge Erythrocyte distribution width (RBC) [Ratio] 12.3 % Normal 11.0-15.0 [facility] Comment on above: Performed By: #### C BC #### [facility] [address] [place] [address] Dr. Hollie Aldridge Hematocrit (Bld) [Volume fraction] 39.8 % Normal 36.0-48.0 [facility] Comment on above: Performed By: #### C BC #### [facility] [address] [place] [address] Dr. Hollie Aldridge Hemoglobin (Bld) [Mass/Vol] 13.5 g/dL Normal 12.0-16.0 [facility] Comment on above: Performed By: #### C BC #### [facility] [address] [place] [address] Dr. Hollie Aldridge IG # 0.03 10e3/ul Normal 0.00-0.[address] [facility] Comment on above: Performed By: #### C BC #### [facility] [address] [place] [address] Dr. Hollie Aldridge IG % 0.5 % Normal 0.0-0.[address] [facility] Comment on above: Performed By: #### C BC #### [facility] [address] [place] [address] Dr. Hollie Aldridge LYMPH # 2.0 103/ul Normal 1.2-3.[address] [facility] Comment on above: Performed By: #### C BC #### [facility] [address] [place] [address] Dr. Hollie Aldridge Lymphocytes/100 WBC (Bld) 33.5 % Normal 20.5-60.[address] [facility] Comment on above: Performed By: #### C BC #### [facility] [address] [place] [address] Dr. Hollie Aldridge MANUAL DIFF REQ NO Normal [facility] Comment on above: Performed By: #### C BC #### [facility] [address] [place] [address] Dr. Hollie Aldridge MCH (RBC) [Entitic mass] 32.1 pg Normal 26.7-34.[address] [facility] Comment on above: Performed By: #### C BC #### [facility] [address] [place] [address] Dr. Hollie Aldridge MCHC (RBC) [Mass/Vol] 33.9 g/dL Normal 29.9-35.[address] [facility] Comment on above: Performed By: #### C BC #### [facility] [address] [place] [address] Dr. Hollie Aldridge MCV (RBC) [Entitic vol] 94.8 fL Normal 81.0-99.[address] [facility] Comment on above: Performed By: #### C BC #### [facility] [address] [place] [address] Dr. Hollie Aldridge MONO # 0.4 103/ul Normal 0.3-0.[address] [facility] Comment on above: Performed By: #### C BC #### [facility] [address] [place] [address] Dr. Hollie Aldridge Monocytes/100 WBC (Bld) 7.0 % Normal 1.7-12.[address] [facility] Comment on above: Performed By: #### C BC #### [facility] [address] [place] [address] Dr. Hollie Aldridge NEUT # 3.1 103/ul Normal 1.4-6.[address] [facility] Comment on above: Performed By: #### C BC #### [facility] [address] [place] [address] Dr. Hollie Aldridge Neutrophils/100 WBC (Bld) 52.1 % Normal 43.0-75.0 [facility] Comment on above: Performed By: #### C BC #### [facility] [address] [place] [address] Dr. Hollie Aldridge Platelet mean volume (Bld) [Entitic vol] 10.1 fL Normal 9.5-13.5 [facility] Comment on above: Performed By: #### C BC #### [facility] [address] [place] [address] Dr. Hollie Aldridge PLT 238 103/ul Normal 150-[address] [facility] Comment on above: Performed By: #### C BC #### [facility] [address] [place] [address] Dr. Hollie Aldridge RBC 4.20 106/ul Normal 4.20-5.40 [facility] Comment on above: Performed By: #### C BC #### [facility] [address] [place] [address] Dr. Hollie Aldridge WBC 5.9 103/ul Normal 4.0-11.0 [facility] Comment on above: Performed By: #### C BC #### [facility] [address] [place] [address] Dr. Hollie Aldridge GLYCOHEMOGLOBIN A1Con 2021 ADA RECOMMENDATION SEE BELOW Normal [facility] Comment on above: Result Comment: ADA RECOMMENDED LIMIT 4.0 - 6.0 ADA THERAPEUTIC TARGET < 7.0 ACTION SUGGESTED > 7.0 Performed By: #### A 1C #### [facility] [address] [place] [address] Dr. Hollie Aldridge Glucose [Mass/Vol] 120 mg/dL Normal [facility] Comment on above: Performed By: #### A 1C #### [facility] [address] [place] [address] Dr. Hollie Aldridge HbA1c (Bld) [Mass fraction] 5.8 % Normal 4.5-6.2 [facility] Comment on above: Performed By: #### A 1C #### [facility] [address] [place], [place] [id number] Dr. Hollie Aldridge IRONon 02-20-2022 Iron [Mass/Vol] 76.0 ug/dL Normal 50.0-170.[address] [facility] Comment on above: Performed By: #### I RAOUL ROWE #### [facility] [address] [address] [address] Hollie Aldridge LIPID PROFILEon 02-20-2022 CHOL-HDL RATIO NORM SEE BELOW Normal [facility] Comment on above: Result Comment: 3.3 - 4.4 LOW RISK 4.4 - 7.1 AVERAGE RISK 7.1 - 11.0 MODERATE RISK >11.0 HIGH RISK Performed By: #### C MP, TSH, LIPID ####[facility] [id number] [address]Dr. Hollie Aldridge Cholesterol [Mass/Vol] 199 mg/dL Normal <=200 [facility] Comment on above: Performed By: #### C MP, TSH, LIPID ####[facility] [address] [address]Dr. Hollie Aldridge Cholesterol in HDL [Mass/Vol] 35 mg/dL Critically low 40-60 [facility] Comment on above: Performed By: #### C MP, TSH, LIPID ####[facility] [address] [address]Dr. Hollie Aldridge Cholesterol in LDL [Mass/Vol] 127.2 mg/dL Normal [facility] Comment on above: Performed By: #### C MP, TSH, LIPID ####[facility] [address] [address]Dr. Hollie Aldridge Cholesterol.total/Cho lesterol in HDL [Mass ratio] 5.7 {ratio} Normal [facility] Comment on above: Performed By: #### C MP, TSH, LIPID ####[facility] [address] [address]Dr. Hollie Alrdidge HDL NORMAL > or = 60 mg/dl - LO W CARDIOVASCULAR RISK <40 mg/dl - HIGH CARDIOVASCULAR RISK Normal [facility] Comment on above: Performed By: #### C MP, TSH, LIPID ####[facility] [address] [place], [place] [address]Qt. Hollie Aldridge LDL CALC NORMAL SEE BELOW Normal [facility] Comment on above: Result Comment: <100 mg/dl OPTIMAL 100 - 129 mg/dl NEAR OR ABOVE OPTIMAL 130 - 159 mg/dl BORDERLINE HIGH 160 - 189 mg/dl HIGH >190 mg/dl VERY HIGH Performed By: #### C MP, TSH, LIPID ####[facility] [address] [place], [place] [address]Wv. Hollie Aldridge Triglyceride [Mass/Vol] 184 mg/dL Critically high <=[address] [facility] Comment on above: Performed By: #### C MP, TSH, LIPID ####[facility] [address] [place], [place] [address]Mi. Hollie Aldridge VLDL CALC 36.8 mg/dL Normal [facility] Comment on above: Performed By: #### C MP, TSH, LIPID ####[facility] [address] [place], [place] [address]Vt. Hollie Aldridge MG MAMM SCREEN 3D MARSHALL CADon 02-20-2022 MG MAMM SCREEN 3D MARSHALL CAD Patient: MICHELLE SALMERON Exam Date: 02/20/2022 : 1970 Gender:F Ordering : DR SEBASTIEN ELIZONDO . Admission #: [id number] Family : Order #: [id number] CLICK HERE TO VIEW EXAM RADIOLOGY REPORT PROCEDURE: MAMMOGRAM SCREENING 3D BILATERAL CAD COMPARISON: None. INDICATIONS: Adult health examination Calculator Name NCI Breast Cancer Risk Assessment Tool 5 Year Breast Cancer Risk 1.00% Lifetime Breast Cancer Risk 7.70% Personal Breast Cancer No Personal Ovarian Cancer No Treatments None Family Cancers Mother with lung cancer at age 77; Brother with leukemia cancer at age 58. LOCATION: [facility] BREAST COMPOSITION: Scattered areas fibroglandular density. FINDINGS: DIAGNOSTIC CATEGORY 2--BENIGN FINDING: Scattered benign-appearing calcifications are present. Scattered benign-appearing lymph nodes are present. RIGHT BREAST: No significant suspicious finding. LEFT BREAST: No significant suspicious finding. RECOMMENDATIONS: ROUTINE MAMMOGRAM AND CLINICAL EVALUATION IN 12 MONTHS. PLEASE NOTE: A NORMAL MAMMOGRAM DOES NOT EXCLUDE THE POSSIBILITY OF BREAST CANCER. A CLINICALLY SUSPICIOUS PALPABLE LUMP SHOULD BE BIOPSIED. Dictated by: Karol Marin MD on 02/20/2022 at 11:46 Approved by: Karol Marin MD on 02/20/2022 at 11:48 Normal [facility] PROF 14(COMP METB)on 022 Albumin [Mass/Vol] 4.1 g/dL Normal 3.4-5.0 [facility] Comment on above: Performed By: #### C MP, TSH, LIPID #### [facility] [address] [place] [address] Dr. Hollie Aldridge Albumin/Globulin [Mass ratio] 1.1 {ratio} Normal [facility] Comment on above: Performed By: #### C MP, TSH, LIPID #### [facility] [address] [place] [address] Dr. Hollie Aldridge ALP [Catalytic activity/Vol] 45 U/L Critically low 46-116 [facility] Comment on above: Performed By: #### C MP, TSH, LIPID #### [facility] [address] [place] [address] Dr. Hollie Aldridge ALT [Catalytic activity/Vol] 70 U/L Critically high 14-59 [facility] Comment on above: Performed By: #### C MP, TSH, LIPID #### [facility] [address] [place] [address] Dr. Hollie Aldridge Anion gap [Moles/Vol] 17.3 mmol/L Normal [facility] Comment on above: Performed By: #### C MP, TSH, LIPID #### [facility] [address] [place] [address] Dr. Hollie Aldridge AST [Catalytic activity/Vol] 39 U/L Critically high 15-37 [facility] Comment on above: Performed By: #### C MP, TSH, LIPID #### [facility] [address] [place] [address] Dr. Hollie Aldridge Bilirubin [Mass/Vol] 0.3 mg/dL Normal 0.2-1.0 [facility] Comment on above: Performed By: #### C MP, TSH, LIPID #### [facility] [address] [place] [address] Dr. Hollie Aldridge Calcium [Mass/Vol] 9.2 mg/dL Normal 8.5-10.1 [facility] Comment on above: Performed By: #### C MP, TSH, LIPID #### [facility] [address] [address] [address] Hollie Aldridge Chloride [Moles/Vol] 109 mmol/L Critically high 98-107 [facility] Comment on above: Performed By: #### C MP, TSH, LIPID #### [facility] [address] [address] [address] Hollie Aldridge CO2 [Moles/Vol] 21.0 mmol/L Normal 21.0-32.0 [facility] Comment on above: Performed By: #### C MP, TSH, LIPID #### [facility] [address] [place] [address] Dr. Hollie Aldridge Creatinine [Mass/Vol] 1.01 mg/dL Normal 0.55-1.02 [facility] Comment on above: Performed By: #### C MP, TSH, LIPID #### [facility] [address] [place] [address] Dr. Hollie Aldridge EGFR-AF SALVADOREAN >60 Normal >=60 [facility] Comment on above: Performed By: #### C MP, TSH, LIPID #### [facility] [address] [place] [address] Dr. Hollie Aldridge EGFR-NON AF SALVADOREAN 57 mL/min/1.73m2 Critically low >=60 [facility] Comment on above: Performed By: #### C MP, TSH, LIPID #### [facility] [address] [place] [address] Dr. Hollie Aldridge Globulin (S) [Mass/Vol] 3.7 g/dL Normal [facility] Comment on above: Performed By: #### C MP, TSH, LIPID #### [facility] [address] [place] [address] Dr. Hollie Aldridge Glucose [Mass/Vol] 149 mg/dL Critically high 74-106 [facility] Comment on above: Performed By: #### C MP, TSH, LIPID #### [facility] [address] [place], [place] [address] Dr. Hollie Aldridge Potassium [Moles/Vol] 4.3 mmol/L Normal 3.5-5.1 [facility] Comment on above: Performed By: #### C MP, TSH, LIPID #### [facility] [address] [place] [address] Dr. Hollie Aldridge Protein [Mass/Vol] 7.8 g/dL Normal 6.4-8.2 [facility] Comment on above: Performed By: #### C MP, TSH, LIPID #### [facility] [address] [place] [address] Dr. Hollie Aldridge Sodium [Moles/Vol] 143 mmol/L Normal 136-145 [facility] Comment on above: Performed By: #### C MP, TSH, LIPID #### [facility] [address] [place] [address] Dr. Hollie Aldridge Urea nitrogen [Mass/Vol] 22.0 mg/dL Critically high 7.0-18.0 [facility] Comment on above: Performed By: #### C MP, TSH, LIPID #### [facility] [address] [place] [address] Dr. Hollie Aldridge Urea nitrogen/Creatinine [Mass ratio] 21.8 mg/mg Normal [facility] Comment on above: Performed By: #### C MP, TSH, LIPID #### [facility] [address] [place] [address] Dr. Hollie Aldridge TSHon 02-20-2022 TSH 3.013 uIU/mL Normal 0.358-3.740 [facility] Comment on above: Performed By: #### C MP, TSH, LIPID #### [facility] [address] [place] [address] Dr. Hollie Aldridge VITAMIN D 25 OHon 02-20-2022 VIT D 25-OH 33.3 ng/mL Normal [facility] Comment on above: Performed By: #### I JAE, VITAD #### [facility] [address] [place] [address] Dr. Hollie Aldridge VIT D RANGES SEE BELOW Normal [facility] Comment on above: Result Comment: <20 ng/mL Vit D deficient 20 - <30 ng/mL Vit D insufficient 30 - 100 ng/mL Vit D sufficient >100 ng/mL Potential Toxicity Performed By: #### I JAE, VITAD #### [facility] [address] [place], [place] [address] Dr. Hollie Aldridge Outside Colonoscopyon 2021 Outside Colonoscopy [id number] .00CD:127 Normal [facility] Pathology Noteon 02-09-2022 Pathology Note [id number] 1.00CD:127 Normal [facility] POINT OF CARE GLUCOSEon 01-25 Glucose [Mass/Vol] 155 mg/dL Critically high 74-106 [facility] Comment on above: Performed By: #### P OCGLUC ####[facility] [address] [place], [place] [address]PzDr. Hollie Aldridge Lab Reportson 02-06-2022 Lab Reports [id number] .00CD:127 Normal [facility] 01-25 SARS-CoV-2 (COVID-19) RNA ESTRELLITA+probe Ql (Unsp spec) Not detected Normal NOT DETECTED [facility] Comment on above: Result Comment: This test is not yet approved or cleared by the [place] FDA. When there are no FDA-approved or cleared tests available, and other criteria are met, FDA can make tests available under an emergency access mechanism called an Emergency Use Authorization (EUA). The EUA for this test is supported by the [place] of Health and Human Service's (HHS's) declaration that circumstances exist to justify the emergency use of in vitro diagnostics for the detection and/or diagnosis of the virus that causes COVID-19. This EUA will remain in effect (meaning this test can be used) for the duration of the COVID-19 declaration justifying emergency of IVDs, unless it is terminated or revoked by FDA (after which the test may no longer be used). When diagnostic testing is negative, the possibility of a false negative should be considered in the context of a patient's recent exposures and the presence of clinical signs and symptoms consistent with SARS-CoV-2. Performed By: #### C [facility] ####[facility] [address] [place], [place] [address]ItEsther Aldridge Consent for Procedure/Surger yon 01-17-2022 Consent for Procedure/Surgery [id number]. 00CD:127 Normal [facility] Vital Signs Date Time Vital Sign Value Performing Clinician Latisha hayes 01-16-2022 13:11-0400 Blood Pressure Location Genaro NILL General Surgery [place] 01-16-2022 13:11-0400 Diastolic blood pressure 90 mm[Hg] Genaro NILL [facility] [place] 01-16-2022 13:11-0400 Heart rate 76 /min Genaro NILL [facility] [place] 01-16-2022 13:11-0400 Respiratory rate 16 /min Genaro NILL [facility] [place] 01-16-2022 13:11-0400 Systolic blood pressure 128 mm[Hg] Genaro NILL [facility] [place] Encounters Encounter Date Encounter Type Care Provider Facility Start: 08-31-[address] SEBASTIEN ELIZONDO . Facili ty:[facility] Start: 02-26-2022 End: 02-26-2022 ambulatory KATIANA PACHECO Facility:[facility] Start: 02-24-[address] SEBASTIEN ELIZONDO . Facili ty:[facility] Start: 02-22-2022 Encounter for genera l adult medical examination without abnormal findings DR SEBASTIEN ELIZONDO . [facility] Start: 02-21-2022 End: 02-22-2022 ambulatory Genaro ORTEGA Facility:[facility] Start: 02-21-2022 End: 02-21-2022 Patient encounter procedure Genaro R NILL General Surgery Nill/Said [facility] Start: 02-20-2022 End: 02-21-[address] SEBASTIEN ELIZONDO . Facility:[facility] Start: 02-20-2022 End: 02-21-2022 Encounter for general adult medical examination without abnormal findings DR SEBASTIEN ELIZONDO . Facility:[facility] Start: 02-09-2022 Encounter for preprocedural laboratory examination DR GENARO ORTEGA . [facility] Start: 02-07-2022 End: 02-08-2022 ambulatory Genaro ORTEGA Facility:CD:[id number] Start: 02-03-2022 End: 02-04-[address] GENARO ORTEGA . Facility:[facility] Start: 02-03-2022 End: 02-04-2022 Encounter for preprocedural laboratory examination DR GENARO ORTEGA . Facility: Start: 01-16-2022 End: 01-17-2022 ambulatory [facility]TEGA [facility] Start: 01-16-2022 End: 01-16-2022 Patient encounter procedure Genaro Sam NILWill General Surgery Nill/Said [facility] Start: 12-28-[address] SEBASTIEN ELIZONDO . Facili ty: Start: 12-22-2021 ambulatory Genaro ORTEGA Facility :[facility] Procedures Date Procedure Procedure Detail Performing Clinician Start: 02-07-2022 Colonoscopy Genaro NI LL Start: 03-12-2011 Colonoscopy Genaro NI LL Start: 05-27-1995 section Jessenia LAZOL Start: 05-27-1992 section Jessenia LAZOL Cholecystectomy Genaro LAZOL Payers Date Payer Category Payer Unknown [id number] 2.16.8 [id number] 1970 Unknown [id number] 2.16.8 [id number] 1970 Unknown [id number] 2.16.8 [id number] 1970 Unknown [id number] 2.16.84 [id number] 1970 Unknown [id number] 2.16.84 [id number] 1970 Unknown [id number] 2.16.84 [id number] 1970 Unknown [id number] 2.16.84 [id number] 1970 Unknown [id number] 2.16.84 [id number] 1970 Unknown [id number] 2.16.84 [id number] 1970 Unknown [id number] 2.16.84 [id number] 1961 Self-pay [id number] 1961 Unknown [id number] Unknown Self Pay [id number] 1a [id number] Unknown [id number] 2.16.8 [id number] Social History Date Type Detail Facility Tobacco smoking stat [facility] Unknown if ever smoked [facility] Start: 1970 Sex Assigned At Female F [facility] Start: 01-16-2022 Tobacco smoking status Never s moked tobacco (finding) [facility] [place] Tobacco smoking status Never Gener al [facility] [place] Sex Assigned At Female Genera [facility] [place] Goals Date Patient Goal Desired Activity /State Functional Status Date Assessment Result Facility 01-16-2022 Functional Status N/A General [facility] Garcia Clinical Note 02-07-2022 Note Date & Type Note Facility 02-07-2022 Note OPERATIVE NOTE OPERATION DATE: 02/07/2022 PREOPERATIVE DIAGNOSIS: Colorectal screening. POSTOPERATIVE DIAGNOSIS: Sigmoid diverticulosis, 3 mm sigmoid polyp, sessile, as well as enlarged hypertrophic anal papilla, as well as external anal skin tags. PROCEDURE: Colonoscopy to cecum. SURGEON: Genaro Ortega M.D. ANESTHESIA: Monitored anesthesia care. ESTIMATED BLOOD LOSS: Less than 1 mL. INDICATIONS AND CONSENT: Patient is a 51-year-old female who presents for colorectal screening. Indications, risks, benefits, alternatives of proceeding with colonoscopy were explained extensively to the patient, including the risks of bleeding, colon perforation or anesthetic complications. All of her questions were answered. Informed consent was obtained. PROCEDURE: Patient brought to the operating room, placed in the left lateral decubitus position. Monitored anesthesia care was provided. Rectal exam was performed which showed no masses or blood. The scope was inserted into the anal canal. Under direct visualization was advanced. With the aid of abdominal compression, it was advanced to the cecum where cecal markings were clearly identified. There was noted to be a good prep. Upon withdrawal of the scope, mucosal surfaces were carefully examined. There were no mass lesions or inflammatory changes. In the descending colon, there was noted to be a 3 mm sessile polyp that was removed with cold biopsy forceps with good hemostasis. There was moderate sigmoid diverticulosis without inflammatory changes or scarring. The scope was retroflexed in the anal canal. There was noted to be a hypertrophic, pedunculated anal papilla as well as multiple external anal skin tags, prominent rectal veins. No significant hemorrhoidal disease. Scope was then withdrawn. Patient tolerated procedure well, was sent to recovery room in good condition. CC: Sebastien Elizondo M.D. [facility] Clinical Note 01-16-2022 Note Date & Type Note Facility 01-16-2022 Note Chief Complaint consultation for screening colonoscopy HPI Staff 51 year old female presents on consultation from Dr. Elizondo for screening colonoscopy. Denies abdominal or rectal pain. No rectal bleeding or change in bowel habits. Denies nausea or vomiting. No unexplained weight loss. Last colonoscopy completed 02/2011 with benign polyp. No known family history of colon cancer. History of Present Illness 51 yo female with h/o htn, DMII, MS, ADD, ELOISE, referred for colorectal screening; denies change in bms or blood in stools; no abdominal complaints; denies asa or NSAID use, no SBE prophylaxis; last colonoscopy 2010 with diverticulosis, abdominal operations significant for open cholecystectomy and x 2; no fmhx of GI malignancy or IBD; no tobacco use. Review of Systems PHQ Score Initial Depression Screen Score: 0 ROS - Provider Constitutional: no fever, no sweats, no weight loss. Eyes: no glasses, no blurred vision, no visual loss. ENMT: no dentures, no hoarseness, no swallowing difficulties, no hearing loss, no ear infection(s), no nose bleeds. Cardiovascular: normal blood pressure, no chest pain, regular heartbeat, no heart murmur. Respiratory: no shortness of breath, no cough, no asthma, no wheezing. Gastrointestinal: no nausea, no vomiting, no diarrhea, no constipation, no blood in stool, no change in bowel habits, no abdominal pain, no hepatitis. Genitourinary: no kidney stones, no urine infection, no dysuria. Musculoskeletal: no pain, no weakness. Skin: no changing moles, no rash, no skin lumps. Neurologic: no seizures, no epilepsy, no headache. Psychiatric: no emotional or psychiatric problem. Heme/Lymph: no bleeding problems, no anemia, no blood clots, no transfusions. Allergy/Immunologic: no swollen lymph nodes/glands, no IV drug abuse. Other: Additional ROS info: Except as noted in the above Review of Systems and in the History of Present Illness, all other systems have been reviewed and are negative or noncontributory. Physical Exam Vitals & Measurements HR: 76(Peripheral) RR: 16 BP: 128/90 HT: 154.9 cm HT: 154.9 cm WT: 102.5 kg WT: 102.5 kg BMI: 42.72 HEENT: normal conjunctiva, sclera clear, no scleral icterus, EOM intact, PERRLA, oral mucosa moist without lesions. Neck: trachea midline, no mass, symmetric, no thyromegaly or nodules, no adenopathy Respiratory: lungs CTA, respirations non labored. Cardiovascular: regular rate and rhythm, no murmur, no pedal edema or varicosities. Gastrointestinal: obese, soft, non distended, no tenderness, no masses, no palpable hernias, diastasis recti no, no hepatosplenomegaly; normal bs Lymphatic: no cervical adenopathy, Musculoskeletal: normal gait, digits and nails without infection, nodes, cyanosis, clubbing. Skin: no rashes, no lesions, no ulcers, no subcutaneous nodules, induration. Psychiatric/Neuro: oriented to time, place, person, judgement normal, affect appropriate for age, insight intact, no focal deficits. Tests: review of old records completed, Discussed surgical options, risks, and possible complications with patient. Assessment/Plan 1. Screening for malignant neoplasm of colon (Z12.11: Encounter for screening for malignant neoplasm of colon) plan colonoscopy under anesthesia, informed consent obtained. 2. BMI 37.0-37.9, adult (Z68.37: Body mass index [BMI] 37.0-37.9, adult) recommend diet and exercise Follow-up No qualifying data available Problem List/Past Medical History Ongoing ADD (attention deficit disorder) Anxiety Bladder incontinence BMI 37.0-37.9, adult BMI 40.0-44.9, adult Diabetes Diverticulosis Dry eye syndrome History of colon polyps HTN (hypertension) Insomnia Internal hemorrhoids Migraine MS (multiple sclerosis) ELOISE (obstructive sleep apnea) Screening for malignant neoplasm of colon Tension headache Historical No qualifying data Procedure/Surgical History Colonoscopy (03/12/2011), section (1995), section (1992), Cholecystectomy. Medications citalopram 20 mg Tab, 20 mg= 1 tab(s), Oral, Daily cloNIDine 0.1 mg tab, 0.1 mg= 1 tab(s), Oral, BID Concerta 54 mg/24 hr oral tablet, extended release, 54 mg= 1 tab(s), Oral, qAM glimepiride 4 mg Tab, 8 mg= 2 tab(s), Oral, Daily metformin 500 mg oral tablet, 1000 mg= 2 tab(s), Oral, BID oxybutynin 10 mg ER Tab, 10 mg= 1 tab(s), Oral, Daily pioglitazone 30 mg Tab, 30 mg= 1 tab(s), Oral, Daily Ventolin HFA 90 mcg/inh Aerosol, 2 puff(s), Inhalation, QID Allergies codeine (Hives) Social History Alcohol - Denies Alcohol Use, 01/16/2022 Substance Abuse - Denies Substance Abuse, 01/16/2022 Tobacco Never (less than 100 in lifetime) Tobacco Use:. Never Smokeless Tobacco Use:., 01/16/2022 Family History Diabetes mellitus type 2: Mother, Father and Brother. Heart disease: Father. Hypertension: Mother and Father. Leukemia: Brother. Primary malignant neoplasm of lung: Mother. Renal failure syndrome: F (more content not included)... [facility] Comment on above: Result Comment: Elec tronically Signed By: CATY BUSTAMANTE, Genaro Amin\Date and Time Signed: 01/16/22 13:37 EDT Evaluation + Plan note Note Date & Type Note Facility Evaluation + Plan note No data available for this section [facility] [place] [facility] Discharge instructions Note Date & Type Note Facility Hospital Discharge instructions No data available for this section [facility] [place] Progress note Note Date & Type Note Facility Progress note No data available for this section [facility] [place] Advance Directives No Advanced Directives Records Found Advance Directive Response Recorded Date/ Time Advance Directives No October 29 10:04am Assessments No Assessments Information Available Summary Purpose Family History No Family History Records FoundNo Family History Records FoundNo Family History Records FoundNo Family History Records Found Additional Source Comments Care Team (unrecognized sect ion and content) Personnel Name: Sebastien Elizondo MD Address: [address] [place] [address] Personnel Name: Sebastien Elizondo MD Address: [address] [place] [address] INFORMATION SOURCE (unrecogn ized section and content) DATE CREATED AUTHOR 02/23/2022 [facility] DATE CREATED AUTHOR AUTHOR'S ORGANIZ ATION 02/24/2022 [facility] DATE CREATED AUTHOR AUTHOR'S ORGANIZ ATION 09/01/2022 [facility] DATE CREATED AUTHOR AUTHOR'S ORGANIZ ATION 05/18/2023 [facility] FOR RECORDS PERTAINING TO PATIENTS WHO ARE OR HAVE BEEN ENROLLED IN A CHEMICAL DEPENDENCY/SUBSTANCEABUSE PROGRAM, SOME INFORMATION MAY BE OMITTED. This clinical summary was aggregated from multiple sources. Caution should be exercised in using it in the provision of clinical care. This summary normalizes information from multiple sources, and as a consequence, information in this document may materially change the coding, format and clinical context of patient data. In addition, data may be omitted in some cases. CLINICAL DECISIONS SHOULD BE BASED ON THE PRIMARY CLINICAL RECORDS. [facility] provides no warranty or guarantee of the accuracy or completeness of information in this document.
== END 2024-04-28 15:50 | disposition home or self-care (01) | DRG 383 ==
LOC: ER 15:13 → MS 04-27 07:17
PROVIDERS: Internal Medicine; Admitting Provider Family Medicine; Emergency Provider Emergency Medicine; PCP Family Medicine; Visit Provider Family Medicine
DX: L03.312 Cellulitis of back [any part except buttock and flank] (principal); I10 Essential (primary) hypertension; F33.42 Major depressive disorder, recurrent, in full remission; G35 Multiple sclerosis; Z90.49 Acquired absence of other specified parts of digestive tract; Z79.84 Long term (current) use of oral hypoglycemic drugs; E86.0 Dehydration; E11.65 Type 2 diabetes mellitus with hyperglycemia; E66.01 Morbid (severe) obesity due to excess calories; E44.0 Moderate protein-calorie malnutrition; J45.909 Unspecified asthma, uncomplicated; N32.89 Other specified disorders of bladder; R00.0 Tachycardia, unspecified; Z68.36 Body mass index [BMI] 36.0-36.9, adult; B95.61 Methicillin susceptible Staphylococcus aureus infection as the cause of diseases classified elsewhere
CPT/HCPCS: 36415; 36569; 72132; 80048; 80053; 80202; 82948; 83605; 85025; 85610; 87040; 87070; 87075; 87150; 87186; 90674; 94761; 99284; G0378; J1650; J1885; J2270; J2543; J3370; Q9967

== ENCOUNTER 2024-05-01 07:34 | Outpatient (RCR) | payer OTHER, SELFPAY ==
[2024-04-29 08:31] VITALS: PULSE 101; TEMP 36.2; O2SAT 98
[2024-04-29] MEDS: VANCOMYCIN HCL 1,250 MG in 0.9 % SODIUM CHLORIDE 250 ML 166.667 MG IV (08:47)
[2024-04-29] MEDS: LEVOFLOXACIN IN DEXTROSE 5 % 500 MG/100 ML PREMIX 100 MG IV (09:20)
[2024-04-29 19:29] VITALS: BP 165/97; PULSE 119; TEMP 36.1; O2SAT 98
[2024-04-29] MEDS: VANCOMYCIN HCL 1,250 MG in 0.9 % SODIUM CHLORIDE 250 ML 250 MG IV (19:30)
[2024-04-30 08:05] VITALS: BP 163/86; PULSE 106; TEMP 36.1; O2SAT 96
[2024-04-30] MEDS: LEVOFLOXACIN IN DEXTROSE 5 % 500 MG/100 ML PREMIX 100 MG IV (08:13)
[2024-04-30] MEDS: VANCOMYCIN HCL 1,250 MG in 0.9 % SODIUM CHLORIDE 250 ML 166.667 MG IV (08:27)
--- NOTE | 2024-04-30 10:28 | PC.NURSE ---
Pt here for Vanco and Levaquin infusions. Tolerated w/o incident. Pt d/c'd in stable condition.
--- NOTE | 2024-05-01 09:00 | PC.NURSE ---
0820 PICC rt upper arm discontinued, patient placed in supine position, laying flat. valsalva performed while removing picc. 39 cm catheter length. pressure applied x 5 mins. no bleeding noted.2x2 covered with biocclusive dressing. instructed it could be removed later today. verbalized understanding. Released ambulatory
== END 2024-05-01 13:24 | disposition home or self-care (01) ==
LOC: INF 07:34
PROVIDERS: PCP Family Medicine; Visit Provider Family Medicine
DX: L02.212 Cutaneous abscess of back [any part, except buttock and flank] (principal); L03.312 Cellulitis of back [any part except buttock and flank]
CPT/HCPCS: 96365; 96366; 96368; J3370

== ENCOUNTER 2024-06-27 20:47 | Emergency (ER) | payer OTHER, SELFPAY ==
[2024-06-27 20:52] VITALS: BP 172/92; PULSE 121; TEMP 36.7; O2SAT 97; BMI 34.2
--- OUTSIDE RECORDS SUMMARY | 2024-06-27 20:53 | XMS_ITS | CCD ---
Author Organization [facility] Care Team Providers Care Awning Hanger Helper Name Role Phone Sebastien Elizondo Primary Care Physician VIOLETL, Genaro R Attending Unavailable NILL, Genaro R Attending Unavailable NILL, Genaro Sam Attending Unavailable NILL, Genaro Sam Attending Unavailable Hoy PROVIDERSebastien Referring Unavailabl e KATIANA PACHECO Attending Unavailable HOY ., DR CROWE Primary [...] Unavailable HOY ., DR CROWE Consulting Unavailable CHURCHS FERRY, DR KAROL Washburn Consulting Unavailable Unavailable Unavailable Unavailable Allergies Allergy Classification Reported Allergen(s) Allergy Type Date of Onset Reaction(s) Facility (6 sources) Codeine; Translations: [Codeine] Drug Allergy 05-04-2013 Weal (disorder) [facility] Medications Current Medications Medication Drug Class(es) Dates [...] 01-03-2022 Episodic Other aftercare (1 source) Other 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 exterminator (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) drug therapy; Translations: [OTH 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] Onset: 02-12-2022 Episodic Other aftercare (1 source) senior living (current) use of oral hypoglycemic drugs; Translations: [CORPORATE 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 SPECIALIST USE ORAL HYPOGLYCEMIC DX] Onset: 02-12-2022 Episodic [...] Test Name Value Interpretation Reference Range Facility [facility] 05-17-2023 [facility] Telephone (PEDSC) MICHELLE SALMERON ([id number]) 1970 F Date Time Provider Department 05/17/23 BONY UREÑAAL During your visit today, we recorded the following information about you: Allergies As of Date: 05/17/2023 (Not on File) Date Reviewed: Never Reviewed Problem List As Of Date: 05/17/2023 (None) Encounter Status:Closed by BONY UREÑA on 05/17/23 Normal [facility] PAP ACOG PANEL 2: 30 to 65on 03-04-2022 . . Normal [facility] Comment on above: Result Comment: Perf ormed at: WB Performed By: #### [id number] #### [facility] [address] [address] [address] Hollie Aldridge Age Gdln ACOG Testing 30-65 [facility] Comment on above: Performed By: #### [id number] #### [facility] [address] [address] [address] Hollie Aldridge DIAGNOSIS: Comment Normal [facility] Comment on above: Result Comment: NEGA TIVE FOR INTRAEPITHELIAL LESION OR MALIGNANCY. Performed at: WB Performed By: #### [id number] #### [facility] [address] [place] [address] Dr. Hollie Aldridge HPV Aptima Negative Normal Negative [facility] Comment on above: Result Comment: This nucleic acid amplification test detects fourteen high-risk HPV types (16,18,31,33,35,39,45,51,52,56,58,59,66,68) without differentiation. Performed at: =G Performed By: #### [id number] #### [facility] [address] [place] [address] Dr. Hollie Aldridge Methodology: Comment Normal [facility] Comment on above: Result Comment: This liquid based ThinPrep(R) pap test was screened with the use of an image guided system. Performed at: WB Performed By: #### [id number] #### [facility] [address] [address] [address] Hollie Aldridge Note: Comment Normal [facility] Comment on above: Result Comment: The Pap smear is a screening test designed to aid in the detection of premalignant and malignant conditions of the uterine cervix. It is not a diagnostic procedure and should not be used as the sole means of detecting cervical cancer. Both false-positive and false-negative reports do occur. . Performed at: WB Performed By: #### 4 [id number] #### [facility] [address] [place], [place] [address] Dr. Hollie Aldridge Performed by: Comment Normal [facility] Comment on above: Result Comment: Veronica Brown, Candy Catcher (ASCP) Performed at: WB Performed By: #### 4 [id number] #### [facility] [address] [place], [place] [address] Dr. Hollie Aldridge Specimen adequacy: Comment Normal [facility] Comment on above: Result Comment: Sati sfactory for evaluation. Endocervical and/or squamous metaplastic cells (endocervical component) are present. Performed at: WB Performed By: #### [id number] #### [facility] [address] [address] [address] Hollie Aldridge Ambulatory Visit Summaryon 0 [...] Tension headache Tubular adenoma of colon Normal [facility] General Surgery Office/Clini c Noteon 02-21-2022 [...] Renal failure syndrome: Father and Brother. Normal [facility] Comment on above: Result Comment: Elec tronically Signed By: CATY BUSTAMANTE, Genaro Amin\Date and Time Signed: 02/21/22 13:37 EDT Reminderson 02-21-2022 Reminders - From: Josselyn Sterling LPN To: N - Clinical; Sent: 02/21/2022 13:08:48 EDT Show up: 01/07/2027 07:00:00 EDT Subject: colonoscopy recall Due Date/Time: 02/07/2027 07:00:00 EDT Reminder/Recall Patient is due for colonoscopy 02/07/2027 due to history of tubular adenoma. Normal [facility] T4, T3U, FTI LABCORPon 02-21 Free Thyroxine Index 2.4 Normal 1.2-4.9 [facility] Comment on above: Performed By: #### T HYLC #### [facility] [address] [address] [address] Hollie Aldridge T3 Uptake 22 % Critically low 24-39 [facility] Comment on above: Performed By: #### T HYLC #### [facility] [address] [address] [address] Hollie Aldridge T4 [Mass/Vol] 10.8 ug/dL Normal 4.5-12.0 [facility] Comment on above: Performed By: #### T HYLC #### [facility] [address] [address] [address] Hollie Aldridge CBC AUTO DIFFon 02-20-2022 BASO # 0.1 103/ul Normal 0.0-0.1 [facility] Comment on above: Performed By: #### C BC #### [facility] [address] [place] [address] Dr. Hollie Aldridge Basophils/100 WBC (Bld) 1.5 % Normal 0.2-2.0 [facility] Comment on above: Performed By: #### C BC #### [facility] [address] [place] [address] Dr. Hollie Aldridge EO # 0.3 103/ul Normal 0.0-0.7 [facility] Comment on above: Performed By: #### C BC #### [facility] [address] [place] [address] Dr. Hollie Aldridge Eosinophils/100 WBC (Bld) 5.4 % Normal 0.9-7.0 [facility] Comment on above: Performed By: #### C BC #### [facility] [address] [place] [address] Dr. Hollie Aldridge Erythrocyte distribution width (RBC) [Ratio] 12.3 % Normal 11.0-15.0 [facility] Comment on above: Performed By: #### C BC #### [facility] [address] [place] [address] Dr. Hollie Aldridge Hematocrit (Bld) [Volume fraction] 39.8 % Normal 36.0-48.0 [facility] Comment on above: Performed By: #### C BC #### [facility] [address] [place] [address] Dr. Hollie Aldridge Hemoglobin (Bld) [Mass/Vol] 13.5 g/dL Normal 12.0-16.0 [facility] Comment on above: Performed By: #### C BC #### [facility] [address] [place] [address] Dr. Hollie Aldridge IG # 0.03 10e3/ul Normal 0.00-0.03 [facility] Comment on above: Performed By: #### C BC #### [facility] [address] [place] [address] Dr. Hollie Aldridge IG % 0.5 % Normal 0.0-0.5 [facility] Comment on above: Performed By: #### C BC #### [facility] [address] [place] [address] Dr. Hollie Aldridge LYMPH # 2.0 103/ul Normal 1.2-3.8 [facility] Comment on above: Performed By: #### C BC #### [facility] [address] [place] [address] Dr. Hollie Aldridge Lymphocytes/100 WBC (Bld) 33.5 % Normal 20.5-60.0 [facility] Comment on above: Performed By: #### C BC #### [facility] [address] [place] [address] Dr. Hollie Aldridge MANUAL DIFF REQ NO Normal [facility] Comment on above: Performed By: #### C BC #### [facility] [address] [place] [address] Dr. Hollie Aldridge MCH (RBC) [Entitic mass] 32.1 pg Normal 26.7-34.0 [facility] Comment on above: Performed By: #### C BC #### [facility] [address] [place] [address] Dr. Hollie Aldridge MCHC (RBC) [Mass/Vol] 33.9 g/dL Normal 29.9-35.2 [facility] Comment on above: Performed By: #### C BC #### [facility] [address] [place] [address] Dr. Hollie Aldridge MCV (RBC) [Entitic vol] 94.8 fL Normal 81.0-99.0 [facility] Comment on above: Performed By: #### C BC #### [facility] [address] [place] [address] Dr. Hollie Aldridge MONO # 0.4 103/ul Normal 0.3-0.8 [facility] Comment on above: Performed By: #### C BC #### [facility] [address] [place] [address] Dr. Hollie Aldridge Monocytes/100 WBC (Bld) 7.0 % Normal 1.7-12.0 [facility] Comment on above: Performed By: #### C BC #### [facility] [address] [place] [address] Dr. Hollie Aldridge NEUT # 3.1 103/ul Normal 1.4-6.5 [facility] Comment on above: Performed By: #### C BC #### [facility] [address] [place] [address] Dr. Hollie Aldridge Neutrophils/100 WBC (Bld) 52.1 % Normal 43.0-75.0 [facility] Comment on above: Performed By: #### C BC #### [facility] [address] [place] [address] Dr. Hollie Aldridge Platelet mean volume (Bld) [Entitic vol] 10.1 fL Normal 9.5-13.5 [facility] Comment on above: Performed By: #### C BC #### [facility] [address] [place] [address] Dr. Hollie Aldridge PLT 238 103/ul Normal 150-450 [facility] Comment on above: Performed By: #### C BC #### [facility] [address] [place] [address] Dr. Hollie Aldridge RBC 4.20 106/ul Normal 4.20-5.40 [facility] Comment on above: Performed By: #### C BC #### [facility] [address] [place] [address] Dr. Hollie Aldridge WBC 5.9 103/ul Normal 4.0-11.0 [facility] Comment on above: Performed By: #### C BC #### [facility] [address] [place] [address] Dr. Hollie Aldridge GLYCOHEMOGLOBIN A1Con 2021 ADA RECOMMENDATION SEE BELOW Normal [facility] Comment on above: Result Comment: ADA RECOMMENDED LIMIT 4.0 - 6.0 ADA THERAPEUTIC TARGET < 7.0 ACTION SUGGESTED > 7.0 Performed By: #### A 1C #### [facility] [address] [place] [address] Dr. Hollie Aldridge Glucose [Mass/Vol] 120 mg/dL Normal [facility] Comment on above: Performed By: #### A 1C #### [facility] [address] [place] [address] Dr. Hollie Aldridge HbA1c (Bld) [Mass fraction] 5.8 % Normal 4.5-6.2 [facility] Comment on above: Performed By: #### A 1C #### [facility] [address] [place], [place] [address] Dr. Hollie Aldridge IRONon 02-20-2022 Iron [Mass/Vol] 76.0 ug/dL Normal 50.0-170.0 [facility] Comment on above: Performed By: #### I RAOUL ROWE #### [facility] [address] [address] [address] Hollie Aldridge LIPID PROFILEon 02-20-2022 CHOL-HDL RATIO NORM SEE BELOW Normal [facility] Comment on above: Result Comment: 3.3 - 4.4 LOW RISK 4.4 - 7.1 AVERAGE RISK 7.1 - 11.0 MODERATE RISK >11.0 HIGH RISK Performed By: #### C MP, TSH, LIPID ####[facility] [address] [address]Dr. Hollie Aldridge Cholesterol [Mass/Vol] 199 mg/dL Normal <=200 [facility] Comment on above: Performed By: #### C MP, TSH, LIPID ####[facility] [address] [address]Dr. Hollie Aldridge Cholesterol in HDL [Mass/Vol] 35 mg/dL Critically low 40-60 [facility] Comment on above: Performed By: #### C MP, TSH, LIPID ####[facility] [address] [address]Dr. Hollie Aldridge Cholesterol in LDL [Mass/Vol] 127.2 mg/dL Normal [facility] Comment on above: Performed By: #### C MP, TSH, LIPID ####[facility] [address] [address]Dr. Hollie Aldridge Cholesterol.total/Cho lesterol in HDL [Mass ratio] 5.7 {ratio} Normal [facility] Comment on above: Performed By: #### C MP, TSH, LIPID ####[facility] [address] [address]Dr. Hollie Aldridge HDL NORMAL > or = 60 mg/dl - LO W CARDIOVASCULAR RISK <40 mg/dl - HIGH CARDIOVASCULAR RISK Normal [facility] Comment on above: Performed By: #### C MP, TSH, LIPID ####[facility] [address] [place], [place] [address]Ug. Hollie Aldridge LDL CALC NORMAL SEE BELOW Normal [facility] Comment on above: Result Comment: <100 mg/dl OPTIMAL 100 - 129 mg/dl NEAR OR ABOVE OPTIMAL 130 - 159 mg/dl BORDERLINE HIGH 160 - 189 mg/dl HIGH >190 mg/dl VERY HIGH Performed By: #### C MP, TSH, LIPID ####[facility] [address] [place], [place] [address]Ek. Hollie Aldridge Triglyceride [Mass/Vol] 184 mg/dL Critically high <=150 [facility] Comment on above: Performed By: #### C MP, TSH, LIPID ####[facility] [address] [place], [place] [address]Hg. Hollie Aldridge VLDL CALC 36.8 mg/dL Normal [facility] Comment on above: Performed By: #### C MP, TSH, LIPID ####[facility] [address] [place], [place] [address]Fq. Hollie Aldridge MG MAMM SCREEN 3D MARSHALL CADon 02-20-2022 MG MAMM SCREEN 3D MARSHALL CAD Patient: MICHELLE SALMERON Exam Date: 02/20/2022 : 1970 Gender:F Ordering : DR SEBASTIEN ELIZONDO . Admission #: [id number] Family : Order #: [id number] CLICK HERE TO VIEW EXAM RADIOLOGY REPORT [...] leukemia cancer at age 56. LOCATION: [facility] BREAST COMPOSITION: Scattered areas fibroglandular density. FINDINGS: [...] Marin MD on 02/20/2022 at 11:48 Normal [facility] PROF 14(COMP METB)on 022 Albumin [Mass/Vol] 4.1 g/dL Normal 3.4-5.0 [facility] Comment on above: Performed By: #### C MP, TSH, LIPID #### [facility] [address] [place] [address] Dr. Hollie Aldridge Albumin/Globulin [Mass ratio] 1.1 {ratio} Normal [facility] Comment on above: Performed By: #### C MP, TSH, LIPID #### [facility] [address] [place] [address] Dr. Hollie Aldridge ALP [Catalytic activity/Vol] 45 U/L Critically low 46-116 [facility] Comment on above: Performed By: #### C MP, TSH, LIPID #### [facility] [address] [place] [address] Dr. Hollie Aldridge ALT [Catalytic activity/Vol] 70 U/L Critically high 14-59 [facility] Comment on above: Performed By: #### C MP, TSH, LIPID #### [facility] [address] [place] [address] Dr. Hollie Aldridge Anion gap [Moles/Vol] 17.3 mmol/L Normal [facility] Comment on above: Performed By: #### C MP, TSH, LIPID #### [facility] [address] [place] [address] Dr. Hollie Aldridge AST [Catalytic activity/Vol] 39 U/L Critically high 15-37 [facility] Comment on above: Performed By: #### C MP, TSH, LIPID #### [facility] [address] [place] [address] Dr. Hollie Aldridge Bilirubin [Mass/Vol] 0.3 mg/dL Normal 0.2-1.0 [facility] Comment on above: Performed By: #### C MP, TSH, LIPID #### [facility] [address] [place] [address] Dr. Hollie Aldridge Calcium [Mass/Vol] 9.2 mg/dL Normal 8.5-10.1 [facility] Comment on above: Performed By: #### C MP, TSH, LIPID #### [facility] [address] [address] [address] Hollie Aldridge Chloride [Moles/Vol] 109 mmol/L Critically high 98-107 [facility] Comment on above: Performed By: #### C MP, TSH, LIPID #### [facility] [address] [address] [address] Hollie Aldridge CO2 [Moles/Vol] 21.0 mmol/L Normal 21.0-32.0 [facility] Comment on above: Performed By: #### C MP, TSH, LIPID #### [facility] [address] [place] [address] Dr. Hollie Aldridge Creatinine [Mass/Vol] 1.01 mg/dL Normal 0.55-1.02 [facility] Comment on above: Performed By: #### C MP, TSH, LIPID #### [facility] [address] [place] [address] Dr. Hollie Aldridge EGFR-AF BOTSWANAN >60 Normal >=60 [facility] Comment on above: Performed By: #### C MP, TSH, LIPID #### [facility] [address] [place] [address] Dr. Hollie Aldridge EGFR-NON AF BOTSWANAN 57 mL/min/1.73m2 Critically low >=60 [facility] Comment on above: Performed By: #### C MP, TSH, LIPID #### [facility] [address] [place] [address] Dr. Hollie Aldridge Globulin (S) [Mass/Vol] 3.7 g/dL Normal [facility] Comment on above: Performed By: #### C MP, TSH, LIPID #### [facility] [address] [place] [address] Dr. Hollie Aldridge Glucose [Mass/Vol] 149 mg/dL Critically high 74-106 [facility] Comment on above: Performed By: #### C MP, TSH, LIPID #### [facility] [address] [place], [place] [address] Dr. Hollie Aldridge Potassium [Moles/Vol] 4.3 mmol/L Normal 3.5-5.1 [facility] Comment on above: Performed By: #### C MP, TSH, LIPID #### [facility] [address] [place] [address] Dr. Hollie Aldridge Protein [Mass/Vol] 7.8 g/dL Normal 6.4-8.2 [facility] Comment on above: Performed By: #### C MP, TSH, LIPID #### [facility] [address] [place] [address] Dr. Hollie Aldridge Sodium [Moles/Vol] 143 mmol/L Normal 136-145 [facility] Comment on above: Performed By: #### C MP, TSH, LIPID #### [facility] [address] [place] [address] Dr. Hollie Aldridge Urea nitrogen [Mass/Vol] 22.0 mg/dL Critically high 7.0-18.0 [facility] Comment on above: Performed By: #### C MP, TSH, LIPID #### [facility] [address] [place] [address] Dr. Hollie Aldridge Urea nitrogen/Creatinine [Mass ratio] 21.8 mg/mg Normal [facility] Comment on above: Performed By: #### C MP, TSH, LIPID #### [facility] [address] [place] [address] Dr. Hollie Aldridge TSHon 02-20-2022 TSH 3.013 uIU/mL Normal 0.358-3.740 [facility] Comment on above: Performed By: #### C MP, TSH, LIPID #### [facility] [address] [place] [address] Dr. Hollie Aldridge VITAMIN D 25 OHon 02-20-2022 VIT D 25-OH 33.3 ng/mL Normal [facility] Comment on above: Performed By: #### I JAE, VITAD #### [facility] [address] [place] [address] Dr. Hollie Aldridge VIT D RANGES SEE BELOW Normal [facility] Comment on above: Result Comment: <20 ng/mL Vit D deficient 20 - <30 ng/mL Vit D insufficient 30 - 100 ng/mL Vit D sufficient >100 ng/mL Potential Toxicity Performed By: #### I JAE, VITAD #### [facility] [address], [place] [address] Dr. Hollie Aldridge Outside Colonoscopyon 2021 Outside Colonoscopy [id number] .[id number]:127 Normal [facility] Pathology Noteon 02-09-2022 Pathology Note [id number]# 1.00CD:127 Normal [facility] POINT OF CARE GLUCOSEon 01-25 Glucose [Mass/Vol] 155 mg/dL Critically high 74-106 [facility] Comment on above: Performed By: #### P OCGLUC ####[facility] [address] [place], [place] [address]DpDr. Hollie Aldridge Lab Reportson 02-06-2022 Lab Reports [id number] .00CD:127 Normal [facility] Cov[facility]on 01-25 SARS-CoV-2 (COVID-19) RNA ESTRELLITA+probe Ql (Unsp spec) Not detected Normal NOT DETECTED [facility] Comment on above: Result Comment: This test is not yet approved or cleared by the [place] FDA. When there are no FDA-approved or cleared tests available, and other criteria are met, FDA can make tests available under an emergency access mechanism called an Emergency Use Authorization (EUA). The EUA for this test is supported by the [employer] Designer of Health and Human Service's (HHS's) declaration [...] consistent with SARS-CoV-2. Performed By: #### C [facility] ####[facility] [address] [place], [place] [address]OgEsther Aldridge Consent for Procedure/Surger yon 01-17-2022 Consent for Procedure/Surgery [id number]. 00CD:127 Normal [facility] Vital Signs Date Time Vital Sign Value Performing Clinician Latisha hayes 01-16-2022 13:11-0400 Blood Pressure Location Genaro NILL General Surgery [place] 01-16-2022 13:11-0400 Diastolic blood pressure 90 mm[Hg] Genaro NILL [facility] [place] 01-16-2022 13:11-0400 Heart rate 76 /min Genaro NILL General Surgery [place] 01-16-2022 13:11-0400 Respiratory rate 16 /min Genaro NILL General [facility] [place] 01-16-2022 13:11-0400 Systolic blood pressure 128 mm[Hg] Genaro NILL General Surgery [place] Encounters Encounter Date Encounter Type Care Provider Facility Start: 08-31-[address] SEBASTIEN ELIZONDO . Facili ty:[facility] Start: 02-26-2022 End: 02-26-2022 ambulatory KATIANA PACHECO Facility:[facility] Start: 02-24-[address] SEBASTIEN ELIZONDO . Facili ty:[facility] Start: 02-22-2022 Encounter for genera l adult medical examination without abnormal findings DR SEBASTIEN ELIZONDO . [facility] Start: 02-21-2022 End: 02-22-2022 ambulatory Genaro ORTEGA Facility:[facility] Start: 02-21-2022 End: 02-21-2022 Patient encounter procedure Genaro R NILL General Surgery Nill/Said [place] Start: 02-20-2022 End: 02-21-[address] SEBASTIEN ELIZONDO . Facility:[facility] Start: 02-20-2022 End: 02-21-2022 Encounter for general adult medical examination without abnormal findings DR SEBASTIEN ELIZONDO . Facility:[facility] Start: 02-09-2022 Encounter for preprocedural laboratory examination DR GENARO ORTEGA . [facility] Start: 02-07-2022 End: 02-08-2022 ambulatory Genaro ORTEGA Facility:CD:[id number] Start: 02-03-2022 End: 02-04-[address] GENARO ORTEGA . Facility:[facility] Start: 02-03-2022 End: 02-04-2022 Encounter for preprocedural laboratory examination DR GENARO ORTEGA . Facility: Start: 01-16-2022 End: 01-17-2022 ambulatory Gen[facility] ORTEGA [facility] Start: 01-16-2022 End: 01-16-2022 Patient encounter procedure Genaro Sam NILWill General Surgery Nill/Said [place] Start: 12-28-[address] SEBASTIEN ELIZONDO . Facili ty: Start: 12-22-2021 ambulatory Genaro ORTEGA Facility :[facility] Procedures Date Procedure Procedure Detail Performing Clinician Start: 02-07-2022 Colonoscopy Genaro NI LL Start: 03-12-2011 Colonoscopy [facility]aro [facility] Start: 05-27-1995 section Jessenia LAZOL Start: 05-27-1992 section Jessenia LAZOL Cholecystectomy Genaro LAZOL Payers Date Payer Category Payer Unknown [id number] 2.16.8 [id number] 1970 Unknown [id number] 2.16.8 [id number] 1968 Unknown [id number] 2.16.8 [id number] 1968 Unknown [id number] 2.16.84 [id number] 1968 Unknown [id number] 2.16.84 [id number] 1968 Unknown [id number] 2.16.84 [id number] 1968 Unknown [id number] 2.16.84 [id number] 1968 Unknown [id number] 2.16.84 [id number] 1968 Unknown [id number] 2.16.84 [id number] 1968 Unknown [id number] 2.16.84 [id number] 1961 Self-pay [id number] 1961 Unknown [id number] Unknown Self Pay [id number] 1a [id number] Unknown [id number] 2.16.8 [id number] Social History Date Type Detail Facility Tobacco smoking stat [facility] Unknown if ever smoked [facility] Start: 1970 Sex Assigned At Female F [facility] Start: 01-16-2022 Tobacco smoking status Never s moked tobacco (finding) General [facility] Tobacco smoking status Never [facility] [place] Sex Assigned At Female Genera l Surgery [facility] Goals Date Patient Goal Desired Activity /State [...] good condition. CC: Sebastien Elizondo M.D. [facility] Clinical Note 01-16-2022 Note Date & Type [...] failure syndrome: F (more content not included)... [facility] Comment on above: Result Comment: Elec tronically Signed By: CATY BUSTAMANTE, Genaro Amin\Date and Time Signed: 01/16/22 13:37 EDT Evaluation + Plan note Note Date & Type Note Facility Evaluation + Plan note No data available for this section General [facility] Discharge instructions Note Date & Type Note Facility Hospital Discharge instructions No data available for this section [facility] [place] Progress note Note Date & Type Note Facility Progress note No data available for this section [facility] [place] Advance Directives No Advanced Directives Records Found Advance Directive Response Recorded Date/ Time Advance Directives No October 29 10:04am Assessments No Assessments Information Available Summary Purpose Family History No Family History Records FoundNo Family History Records FoundNo Family History Records FoundNo Family History Records Found Additional Source Comments Care Team (unrecognized sect ion and content) Personnel Name: Sebastien Elizondo MD Address: [address] [place] [address] Personnel Name: Sebastien Elizondo MD Address: [address] [place] [address] INFORMATION SOURCE (unrecogn ized section and content) DATE CREATED AUTHOR 02/23/2022 [facility] DATE CREATED AUTHOR AUTHOR'S ORGANIZ ATION 02/24/2022 [facility] DATE CREATED AUTHOR AUTHOR'S ORGANIZ ATION 09/01/[address] [facility] DATE CREATED AUTHOR AUTHOR'S ORGANIZ ATION 05/18/2023 [facility] n[facility] FOR RECORDS PERTAINING TO PATIENTS [...] BE BASED ON THE PRIMARY CLINICAL RECORDS. [facility] [employer] [facility] provides no warranty or guarantee of the accuracy or completeness of information in this document.
[2024-06-27 20:54] VITALS: BP 172/92; O2SAT 97
--- NOTE | 2024-06-27 20:59 | ECG_ITS ---
The [facility] Test Date: 2024-06-27 Pat Name: MICHELLE SALMERON Department: Room: - Gender: Female Sagger Soak: : 1970 Requested By: SEBASTIEN COBIAN Order Number: [id number] Reading MD: SEBASTIEN COBIAN Measurements Intervals [place] Rate: 96 P: 46 MT: 142 QRS: 30 QRSD: 82 T: 31 QT: 346 QTc: 399 Interpretive Statements 1100 Sinus rhythm 9110 normal ECG No previous ECG available for comparison Electronically Signed On 06-29-2024 13:34:06 EST by SEBASTIEN COBIAN
--- NOTE | 2024-06-27 20:59 | CT_ITS ---
The [address] [address] Patient Name: MICHELLE SALMERON MRN: [id number] date: 1970 Sex: F Assigned Patient Location: ER Current Patient Location: ER Accession/Order Number: [id number] Exam Date: 06/27/2024 21:04 Report Date: 06/27/2024 21:40 At the request of: TERESITA ODONNELL Procedure: CT stroke head/brain wo con CT HEAD WITHOUT CONTRAST. CLINICAL HISTORY: numbness/tingling COMPARISON: None available for comparison TECHNIQUE: Axial CT head images from the skull base to the vertex without IV contrast were acquired. Coronal and sagittal reformats were also obtained. FINDINGS: Somewhat limited evaluation due to beam hardening artifact from the relatively thickened calvarium. EXTRA-AXIAL SPACE: Age-appropriate ventricles. No acute extra-axial collection. No extra-axial mass. No midline shift. CEREBRUM: Somewhat limited evaluation due to beam hardening artifact.. There are areas of periventricular and deep white matter low-attenuation, which is nonspecific but likely reflective of chronic microvascular ischemic disease. There is a focal area of subcortical low-attenuation in the right high frontal lobe. No CT evidence of acute large territorial cortical infarct, hemorrhage or mass effect. CEREBELLUM: No focal abnormality. No CT evidence of acute infarct, hemorrhage or mass effect. BRAINSTEM: No focal abnormality. No CT evidence of acute infarct, hemorrhage or mass effect. EXTRACRANIAL STRUCTURES. The paranasal sinuses are clear. Mastoid air cells are clear. Orbits are unremarkable. No discrete pituitary mass. Intact calvarium. CT/CT stroke head/brain wo con IMPRESSION: 1. Limited evaluation of the high right frontal lobe. No evidence of acute cortical infarct, hemorrhage or mass effect. Consider MR brain for further evaluation. 2. Focal area of subcortical low-attenuation in the right high frontal lobe which may represent a chronic subcortical infarct or developmental venous anomaly. Electronically authenticated by: MONI BURDEN Date: 06/27/2024 21:40
[2024-06-27 21:18] LABS: Basophils Absolute Auto 0.1 10^3/uL (0.0-0.1); Basophils Percent Auto 1.2 % (0.2-2.0); Eosinophils Absolute Auto 0.3 10^3/uL (0.0-0.7); Eosinophils Percent Auto 4.3 % (0.9-7.0); Hematocrit 38.9 % (36.0-48.0); Hemoglobin 13.4 g/dL (12.0-16.0); Immature Granulocytes Abs Auto 0.03 10^3/uL (0.00-0.03); Immature Granulocytes Pct Auto 0.4 % (0.0-0.5); Lymphocytes Absolute Auto 3.3 10^3/uL (1.2-3.8); Lymphocytes Percent Auto 45.2 % (20.5-60.0); Mean Corpuscular HGB Conc 34.4 g/dL (29.9-35.2); Mean Corpuscular Hemoglobin 32.1 pg (26.7-34.0); Mean Corpuscular Volume 93.3 fL (81.0-99.0); Mean Platelet Volume 9.7 fL (9.5-13.5); Monocytes Absolute Auto 0.4 10^3/uL (0.3-0.8); Monocytes Percent Auto 5.4 % (1.7-12.0); Neutrophils Absolute Auto 3.2 10^3/uL (1.4-6.5); Neutrophils Percent Auto 43.5 % (43.0-75.0); Platelet Count 212 10^3/uL (150-450); Red Blood Count 4.17 10^6/uL (4.20-5.40); Red Cell Distribution Width 12.4 % (11.0-15.0); White Blood Count 7.4 10^3/uL (4.0-11.0)
[2024-06-27] MEDS: METHYLPREDNISOLONE SOD SUCC PF 125 MG/2 ML VIAL IVP (21:18)
--- NOTE | 2024-06-27 21:27 | ED.NEUROSD1 ---
HPI - Neuro Symptoms/Deficit General Chief Complaint: Neuro Symptoms/Deficit Stated Complaint: Possible STROKE Time Seen by Provider: 06/27/24 20:58 Source: patient Mode of arrival: walk-in Limitations: no limitations History of Present Illness HPI Narrative: Left facial and left upper extremity numbness/tingling 54-year-old female patient with previous diagnosis of multiple sclerosis and chronic paresthesias, typically with some associated left-sided weakness that is greater than that on the right, presents now with 4-day history of tingling to the left side of the face and to the left upper extremity. She said that she became concerned today because the left side of her face started to droop. As she talks and smiles I do not see any facial changes but when I specifically asked her to point out she lifts the right side and then keeps the left side down. On questioning, she admits that some of the sensory changes are typical for her. She was uncertain whether this might be an MS flare which is why she did not come in to get seen immediately. She denies any fall or injury to the head or neck. She does admit to some upper respiratory symptoms, which began about 10 days ago. Related Data Home Medications ?Medication ?Instructions ?Recorded ?Confirmed albuterol sulfate 90 mcg/actuation 2 inh inhalation Q6H PRN 04/25/24 04/25/24 aerosol inhaler bronchospasm citalopram 20 mg tablet 20 mg PO DAILY 04/25/24 04/25/24 clonidine HCl 0.1 mg tablet 0.1 mg PO Q12H 04/25/24 04/25/24 glimepiride 4 mg tablet 4 mg PO DAILY 04/25/24 04/25/24 metformin 500 mg tablet 500 mg PO DAILY 04/25/24 04/25/24 oxybutynin chloride 10 mg 10 mg PO DAILY 04/25/24 04/25/24 tablet,extended release 24 hr pioglitazone 30 mg tablet 30 mg PO DAILY 04/25/24 04/25/24 methylphenidate HCl 54 mg 54 mg PO DAILY 04/26/24 04/26/24 tablet,extended release 24 hr Previous Rx's ?Medication ?Instructions ?Recorded Vancomycin HCl 1,250 mg 250 mls/hr IV Q12H 04/28/24 prednisone 20 mg tablet 40 mg (2 x 20 mg) PO DAILY 3 days 06/27/24 #6 tabs Allergies Allergy/AdvReac Type Severity Reaction Status Date / Time codeine AdvReac Intermediate Hives Verified 04/25/24 10:55 PFSH PFS Medical History (Updated 06/27/24 @ 22:00 by Chun Martel) Cellulitis ?L03.90 - Cellulitis, unspecified (ICD-10) Depression ?F32.A - Depression, unspecified (ICD-10) Multiple sclerosis ?G35 - Multiple sclerosis (ICD-10) Diabetes ?E11.9 - Type 2 diabetes mellitus without complications (ICD-10) Hypertension ?I10 - Essential (primary) hypertension (ICD-10) Surgical History (Updated 04/25/24 @ 16:29 by Arleen Srinivasan) History of cholecystectomy ?Z90.49 - Acquired absence of other specified parts of digestive tract (ICD-10) Family History (Updated 04/25/24 @ 16:30 by Arleen Srinivasan) Father Family history of CHF (congestive heart failure) Family history of diabetes mellitus Family history of hypertension Family history of myocardial infarction Family history of stroke Brother Family history of cancer Family history of diabetes mellitus Family history of hypertension Mother Family history of cancer Family history of diabetes mellitus Family history of hypertension Grandfather Family history of stroke Social History (Updated 04/25/24 @ 16:31 by Arleen Srinivasan) Within the past year, how often did you have a drink containing alcohol: never Score interpretation: A score less than 3 is consistent with normal alcohol consumption. Smoking status: Never smoker Non-prescribed substance use: cannabis (any form) Non-prescribed substance use details: edibles Previous occupational history: disabled Highest level of school completed/degree received: some college, no degree Are you now , , , , never or living with a partner: In a typical week, how many times do you talk on the telephone with family, friends, or neighbors: 3 or more times per week How often do you get together with friends or relatives: 3 or more times per week How often do you attend mormon or pentecostal services: never Do you belong to any clubs or organizations such as mormon groups unions, fraternal or athletic groups, or school groups: no Total score: 1 Score interpretation: A score of less than or equal to 1 indicates the most socially isolated. Little interest or pleasure in doing things: not at all Feeling down, depressed, or hopeless: not at all Feel stressed/tense/nervous/anxious/difficulty sleeping: not at all Exam Narrative Exam Narrative: Nurses notes and vital signs reviewed and patient is not hypoxic. afebrile General: Well-appearing and in no apparent distress. Skin: Warm, dry, no pallor noted. Head: Normocephalic, atraumatic. Neck: Supple, non-tender. No meningismus Eye: Pupils are equal, round and EOMI. No scleral icterus. No nystagmus Ears, Nose, Mouth, and Throat: Oral mucosa is moist Cardiovascular: Regular Rate and Rhythm without murmur, gallop or rub. Respiratory: No accessory muscle use or respiratory distress. Lungs are clear to auscultation, no wheezing, rales or rhonchi Musculoskeletal: normal ROM, no calf or popliteal tenderness, no lower extremity edema/swelling Neurological: A&O x4. No tongue deviation, facial asymmetry or other cranial nerve dysfunction observed. No truncal ataxia. Moves all extremities without pronator drift. 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 Normal movement of the lower extremities bilaterally. sensation intact but she subjectively tells me that she has decreased sensation of both lower extremities with the left worse than the right and also has decree sensation along the left portion of the cheek and jaw and throughout the left upper extremity. She says that her forehead is unaffected. Psychiatric: Cooperative and interactive. Normal mood and affect. Constitutional Vital Signs, click to edit/add: Last Vital Signs Temp 98.1 F 06/27/24 20:52 Pulse 101 H 06/27/24 21:36 Resp 27 H 06/27/24 21:36 BP 147/80 H 06/27/24 21:36 Pulse Ox 96 06/27/24 21:36 O2 Del Method Room Air 06/27/24 20:52 Course Vital Signs Vital signs: Vital Signs Temperature 98.1 F 06/27/24 20:52 Pulse Rate 121 H 06/27/24 20:52 Respiratory Rate 18 06/27/24 20:52 Blood Pressure 172/92 H 06/27/24 20:52 Pulse Oximetry 97 06/27/24 20:52 Oxygen Delivery Method Room Air 06/27/24 20:52 Temperature 98.1 F 06/27/24 20:52 Pulse Rate 101 H 06/27/24 21:36 Respiratory Rate 27 H 06/27/24 21:36 Blood Pressure 147/80 H 06/27/24 21:36 Pulse Oximetry 96 06/27/24 21:36 Oxygen Delivery Method Room Air 06/27/24 20:52 MDM - Neuro Symptoms/Deficit MDM Narrative Medical decision making narrative: Patient was sent for noncontrast CT scan of the brain, per stroke protocol. When she returned to the room, she was placed on telemetry monitor and EKG obtained. Blood drawn and sent for evaluation. The patient's workup was unremarkable aside from mild elevation of her BUN and creatinine. Noncontrast CT scan of the brain, per per stroke protocol, revealed chronic small vessel changes but no acute infarct or intracranial hemorrhage. Electrolytes were unremarkable. CBC was likewise unremarkable. Glucose minimally elevated at 139. The patient received IV Solu-Medrol prior to discharge. I did prescribe a short course of steroid for her to take at home. She is a diabetic on metformin so she will need to be cautious with her sugar values -she can see Dr. Elizondo for follow-up. Emergency department turn if she should suddenly worsen Medical Records Attestation: I reviewed the patient's medical records. Lab Data Attestation: I reviewed the patient's lab results. Labs: Lab Results 06/27/24 Range/Units 21:03 WBC 7.4 (4.0-11.0) 10^3/uL RBC 4.17 L (4.20-5.40) 10^6/uL Hgb 13.4 (12.0-16.0) g/dL Hct 38.9 (36.0-48.0) % MCV 93.3 (81.0-99.0) fL MCH 32.1 (26.7-34.0) pg MCHC 34.4 (29.9-35.2) g/dL RDW 12.4 (11.0-15.0) % Plt Count 212 (150-450) 10^3/uL MPV 9.7 (9.5-13.5) fL Neut % (Auto) 43.5 (43.0-75.0) % Lymph % (Auto) 45.2 (20.5-60.0) % Winn % (Auto) 5.4 (1.7-12.0) % Eos % (Auto) 4.3 (0.9-7.0) % Baso % (Auto) 1.2 (0.2-2.0) % Neut # (Auto) 3.2 (1.4-6.5) 10^3/uL Lymph # (Auto) 3.3 (1.2-3.8) 10^3/uL Winn # (Auto) 0.4 (0.3-0.8) 10^3/uL Eos # (Auto) 0.3 (0.0-0.7) 10^3/uL Baso # (Auto) 0.1 (0.0-0.1) 10^3/uL Abs Immat Gran (auto) 0.03 (0.00-0.03) 10^3/uL Imm/Tot Granulo (auto) 0.4 (0.0-0.5) % PT 11.0 (9.0-11.6) sec INR 1.04 APTT 28.8 (22.3-36.2) sec Sodium 141 (136-145) mmol/L Potassium 3.9 (3.5-5.1) mmol/L Chloride 105 (98-107) mmol/L Carbon Dioxide 24.9 (21.0-32.0) mmol/L Anion Gap 15.0 BUN 23.0 H (7.0-18.0) mg/dL Creatinine 1.18 H (0.55-1.02) mg/dL Est GFR ( Amer) 57 L (>=60 mL/min/1.73m^2) Est GFR (Non-Af Amer) 47 L (>=60 mL/min/1.73m^2) BUN/Creatinine Ratio 19.5 Glucose 139 H (74-106) mg/dL Calcium 8.9 (8.5-10.1) mg/dL Imaging Data CT scan - head: Attestation: I have reviewed the pertinent imaging results. Radiologist's impression: ITS Impressions Brain CT 06/27/24 20:59 IMPRESSION: 1. Limited evaluation of the high right frontal lobe. No evidence of acute cortical infarct, hemorrhage or mass effect. Consider MR brain for further evaluation. 2. Focal area of subcortical low-attenuation in the right high frontal lobe which may represent a chronic subcortical infarct or developmental venous anomaly. Electronically authenticated by: MONI BURDEN Date: 06/27/2024 21:40 ECG Data Attestation: I personally reviewed and interpreted this ECG as follows: Interpretation: EKG interpretation: Emergency Department physician interpretation. Normal sinus rhythm at 96bpm. Normal axis, normal intervals and no ST segment elevation or depression. Normal EKG. Discharge Plan Discharge Chief Complaint: Neuro Symptoms/Deficit Clinical Impression: Multiple sclerosis, Peripheral neuropathy Patient Disposition: Home, Self-Care Time of Disposition Decision: 22:00 Prescriptions / Home Meds: New prednisone 20 mg tablet 40 mg PO DAILY 3 Days Qty: 6 0RF No Action citalopram 20 mg tablet 20 mg PO DAILY clonidine HCl 0.1 mg tablet 0.1 mg PO Q12H albuterol sulfate 90 mcg/actuation HFA aerosol inhaler 2 inh INHALATION Q6H PRN (Reason: bronchospasm) glimepiride 4 mg tablet 4 mg PO DAILY metformin 500 mg tablet 500 mg PO DAILY oxybutynin chloride 10 mg tablet extended release 24hr 10 mg PO DAILY pioglitazone 30 mg tablet 30 mg PO DAILY methylphenidate HCl 54 mg tablet extended release 24hr 54 mg PO DAILY Vancomycin HCl 1250 MG 0.9 % Sodium Chloride [Sodium Chloride 0.9% 250 ml] 250 ML 250 mls/hr IV Q12H Ordered By: Sohan Elizondo MD Last Taken: Unknown Print Language: Upper Sorbian Instructions: Multiple Sclerosis (DC), Peripheral Neuropathy (ED), Paresthesia (ED) Referrals: Sohan Elizondo MD [Primary Care Provider] - 1 week
[2024-06-27 21:33] LABS: BUN Creatinine Ratio 19.5; Calcium 8.9 mg/dL (8.5-10.1); Carbon Dioxide 24.9 mmol/L (21.0-32.0); Chloride 105 mmol/L (98-107); Estimated GFR (African America 57 (>=60 mL/min/1.73m^2); Estimated GFR (Non-African Ame 47 (>=60 mL/min/1.73m^2); Glucose 139 mg/dL (74-106); Potassium 3.9 mmol/L (3.5-5.1); Sodium 141 mmol/L (136-145)
[2024-06-27 21:34] VITALS: PULSE 98
[2024-06-27 21:36] VITALS: BP 147/80; PULSE 101; O2SAT 96
[2024-06-27 21:41] LABS: INR 1.04; Partial Thromboplastin Time 28.8 sec (22.3-36.2)
[2024-06-27 22:00] VITALS: BP 136/84; PULSE 94; O2SAT 95
== END 2024-06-27 22:15 | disposition home or self-care (01) ==
PROVIDERS: Emergency Provider Emergency Medicine; PCP Family Medicine
DX: G62.9 Polyneuropathy, unspecified (principal); G35 Multiple sclerosis; Z90.49 Acquired absence of other specified parts of digestive tract; E11.9 Type 2 diabetes mellitus without complications; Z79.84 Long term (current) use of oral hypoglycemic drugs
CPT/HCPCS: 36415; 70450; 80048; 85025; 85610; 85730; 93005; 96374; 99285; J2919

== ENCOUNTER 2025-01-29 09:11 | Outpatient (OUT) | payer OTHER, SELFPAY ==
--- NOTE | 2025-01-29 09:19 | XR_ITS ---
The [address] [address] Patient Name: MICHELLE SALMERON MRN: [id number] date: 1970 Sex: F Assigned Patient Location: LAB Current Patient Location: LAB Accession/Order Number: [id number] Exam Date: 01/29/2025 09:28 Report Date: 01/29/2025 10:00 At the request of: SEBASTIEN COBIAN MD Procedure: XR chest 2V CLINICAL DATA: Chronic bilateral rib pain since fall and June and November . Pain is below both breasts and the upper posterior chest wall on the right. R07.89 PA AND LATERAL CHEST: COMPARISON: None There is no focal parenchymal consolidation, effusion or pneumothorax. The cardiac, hilar and mediastinal silhouettes are within normal limits. There is no vascular congestion. The visualized bony thorax is intact. Tiny endplate spurs are present. XR/XR chest 2V IMPRESSION: NO ACUTE CARDIOPULMONARY ABNORMALITY. BILATERAL RIBS - 3 views COMPARISON: None AP and both oblique views were obtained. No acute displaced or healing rib fractures are identified. No bony destruction is noted. There are no abnormal soft tissue findings. IMPRESSION: NO DEFINITE RIB ABNORMALITIES. Impression dictated by: Cammie Alicia M.D. 01/29/2025 10:00 AM Dictation Location: [facility] CENTERFlame[facility] Electronically authenticated by: [id number] Y Date: 01/29/2025 10:00
--- NOTE | 2025-01-29 09:20 | XR_ITS ---
The [address] [address] Patient Name: MICHELLE SALMERON MRN: [id number] date: 1970 Sex: F Assigned Patient Location: LAB Current Patient Location: LAB Accession/Order Number: [id number] Exam Date: 01/29/2025 09:28 Report Date: 01/29/2025 10:00 At the request of: SEBASTIEN COBIAN MD Procedure: XR chest 2V CLINICAL DATA: Chronic bilateral rib pain since fall and June and November . Pain is below both breasts and the upper posterior chest wall on the right. R07.89 PA AND LATERAL CHEST: COMPARISON: None There is no focal parenchymal consolidation, effusion or pneumothorax. The cardiac, hilar and mediastinal silhouettes are within normal limits. There is no vascular congestion. The visualized bony thorax is intact. Tiny endplate spurs are present. XR/XR ribs BI 3V IMPRESSION: NO ACUTE CARDIOPULMONARY ABNORMALITY. BILATERAL RIBS - 3 views COMPARISON: None AP and both oblique views were obtained. No acute displaced or healing rib fractures are identified. No bony destruction is noted. There are no abnormal soft tissue findings. IMPRESSION: NO DEFINITE RIB ABNORMALITIES. Impression dictated by: Cammie Alicia M.D. 01/29/2025 10:00 AM Dictation Location: [facility] Electronically authenticated by: [id number] Y Date: 01/29/2025 10:00
--- OUTSIDE RECORDS SUMMARY | 2025-01-29 09:37 | XMS_ITS | CCD ---
Author Organization [facility] Care Team Providers Care Pipe Fitter Apprentice Name Role Phone Sebastien Elizondo Primary Care [...] Unavailable HOY ., DR CROWE Consulting Unavailable [place], DR KAROL Washburn Consulting Unavailable Unavailable Unavailable Unavailable Allergies Allergy Classification Reported Allergen(s) Allergy Type Date of Onset Reaction(s) Facility (6 sources) Codeine; Translations: [Codeine] Drug Allergy 05-04-2013 Weal (disorder) [facility] Medications Current Medications Medication Drug Class(es) Dates [...] 01-03-2022 Episodic Other aftercare (1 source) 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; Translations: [OTH SENIOR CARE CURRENT DRUG THERAPY] Onset: 02-12-2022 Episodic Other aftercare (1 source) [facility] (current) use of oral hypoglycemic drugs; Translations: [CHILD LIFE THERAPIST USE ORAL HYPOGLYCEMIC DX] Onset: 02-12-2022 Episodic [...] Test Name Value Interpretation Reference Range Facility [facility] 05-17-2023 [facility] Telephone (PEDSC) MICHELLE SALMERON ([id number]) 1970 F Date Time Provider Department 05/17/23 BONY UREÑAID During your visit today, we recorded the following information about you: Allergies As of Date: 05/17/2023 (Not on File) Date Reviewed: Never Reviewed Problem List As Of Date: 05/17/2023 (None) Encounter Status:Closed by BONY UREÑA on 05/17/[address] [facility] PAP ACOG PANEL 2: 30 to 65on 03-04-2022 . . Normal [facility] Comment on above: Result Comment: Perf ormed at: WB Performed By: #### [id number] #### [facility] Laboratory [address] [address] [address] Hollie Aldridge Age Gdln ACOG Testing 30-65 [facility] Comment on above: Performed By: #### 4 [id number] #### [facility] Laboratory [address] [address] [address] Hollie Aldridge DIAGNOSIS: Comment Normal [facility] Comment on above: Result Comment: NEGA TIVE FOR INTRAEPITHELIAL LESION OR MALIGNANCY. Performed at: WB Performed By: #### [id number] #### [facility] Laboratory [address] [place] [address] Dr. Hollie Aldridge HPV Aptima Negative Normal Negative [facility] Comment on above: Result Comment: This nucleic acid amplification test detects fourteen high-risk HPV types (16,18,31,33,35,39,45,51,52,56,58,59,66,68) without differentiation. Performed at: =G Performed By: #### 4 [id number] #### [facility] Laboratory [address] [place] [address] Dr. Hollie Aldridge Methodology: Comment Normal [facility] Comment on above: Result Comment: This liquid based ThinPrep(R) pap test was screened with the use of an image guided system. Performed at: WB Performed By: #### [id number] #### [facility] [address] [address] [address] Hollie Aldridge Note: Comment Normal [facility] Comment on above: Result Comment: The Pap smear is a screening test designed to aid in the detection of premalignant and malignant conditions of the uterine cervix. It is not a diagnostic procedure and should not be used as the sole means of detecting cervical cancer. Both false-positive and false-negative reports do occur. . Performed at: WB Performed By: #### [id number] #### [facility] [address] [place], [place] [address] Dr. Hollie Aldridge Performed by: Comment Normal [facility] Comment on above: Result Comment: Veronica Brown, Sports Announcer (ASCP) Performed at: WB Performed By: #### [id number] #### [facility] [address], [place] [address] Dr. Hollie Aldridge Specimen adequacy: Comment Normal [facility] Comment on above: Result Comment: Sati sfactory for evaluation. Endocervical and/or squamous metaplastic cells (endocervical component) are present. Performed at: WB Performed By: #### 4 [id number] #### [facility] [address] [address] [address] Hollie Aldridge Ambulatory Visit Summaryon 0 [...] Tension headache Tubular adenoma of colon Normal [facility] General Surgery Office/Clini c Noteon 02-21-2022 [...] Renal failure syndrome: Father and Brother. Normal [facility] Comment on above: Result Comment: Elec tronically Signed By: CATY BUSTAMANTE, Genaro Amin\Date and Time Signed: 02/21/22 13:37 EDT Reminderson 02-21-2022 Reminders - From: Josselyn Sterling LPN To: N - Clinical; Sent: 02/21/2022 13:08:48 EDT Show up: 01/07/2027 07:00:00 EDT Subject: colonoscopy recall Due Date/Time: 02/07/2027 07:00:00 EDT Reminder/Recall Patient is due for colonoscopy 02/07/2027 due to history of tubular adenoma. Normal [facility] T4, T3U, FTI LABCORPon 02-21 Free Thyroxine Index 2.4 Normal 1.2-4.9 [facility] Comment on above: Performed By: #### T HYLC #### [facility] [address] [address] [address] Hollie Aldridge T3 Uptake 22 % Critically low 24-39 [facility] Comment on above: Performed By: #### T HYLC #### [facility] Laboratory [address] [address] [address] Hollie Aldridge T4 [Mass/Vol] 10.8 ug/dL Normal 4.5-12.0 [facility] Comment on above: Performed By: #### T HYLC #### [facility] Laboratory [address] [address] [address] Hollie Aldridge CBC AUTO DIFFon 02-20-2022 BASO # 0.1 103/ul Normal 0.0-0.1 [facility] Comment on above: Performed By: #### C BC #### [facility] [address] [place] [address] Dr. Hollie Aldridge Basophils/100 WBC (Bld) 1.5 % Normal 0.2-2.0 [facility] Comment on above: Performed By: #### C BC #### [facility] Laboratory [address] [place] [address] Dr. Hollie Aldridge EO # 0.3 103/ul Normal 0.0-0.7 [facility] Comment on above: Performed By: #### C BC #### [facility] Laboratory [address] [place] [address] Dr. Hollie Aldridge Eosinophils/100 WBC (Bld) 5.4 % Normal 0.9-7.0 [facility] Comment on above: Performed By: #### C BC #### [facility] Laboratory [address] [place] [address] Dr. Hollie Aldridge Erythrocyte distribution width (RBC) [Ratio] 12.3 % Normal 11.0-15.0 [facility] Comment on above: Performed By: #### C BC #### [facility] [address] [place] [address] Dr. Hollie Aldridge Hematocrit (Bld) [Volume fraction] 39.8 % Normal 36.0-48.0 [facility] Comment on above: Performed By: #### C BC #### [facility] [address] [place] [address] Dr. Hollie Aldridge Hemoglobin (Bld) [Mass/Vol] 13.5 g/dL Normal 12.0-16.0 [facility] Comment on above: Performed By: #### C BC #### [facility] [address] [place] [address] Dr. Hollie Aldridge IG # 0.03 10e3/ul Normal 0.00-0.03 [facility] Comment on above: Performed By: #### C BC #### [facility] [address] [place] [address] Dr. Hollie Aldridge IG % 0.5 % Normal 0.0-0.5 [facility] Comment on above: Performed By: #### C BC #### [facility] [address] [place] [address] Dr. Hollie Aldridge LYMPH # 2.0 103/ul Normal 1.2-3.8 [facility] Comment on above: Performed By: #### C BC #### [facility] [address] [place] [address] Dr. Hollie Aldridge Lymphocytes/100 WBC (Bld) 33.5 % Normal 20.5-60.0 [facility] Comment on above: Performed By: #### C BC #### [facility] [address] [place] [address] Dr. Hollie Aldridge MANUAL DIFF REQ NO Normal [facility] Comment on above: Performed By: #### C BC #### [facility] [address] [place] [address] Dr. Hollie Aldridge MCH (RBC) [Entitic mass] 32.1 pg Normal 26.7-34.0 [facility] Comment on above: Performed By: #### C BC #### [facility] Laboratory [address] [place] [address] Dr. Hollie Aldridge MCHC (RBC) [Mass/Vol] 33.9 g/dL Normal 29.9-35.2 [facility] Comment on above: Performed By: #### C BC #### [facility] [address] [place] [address] Dr. Hollie Aldridge MCV (RBC) [Entitic vol] 94.8 fL Normal 81.0-99.0 [facility] Comment on above: Performed By: #### C BC #### [facility] [address] [place] [address] Dr. Hollie Aldridge MONO # 0.4 103/ul Normal 0.3-0.8 [facility] Comment on above: Performed By: #### C BC #### [facility] [address] [place] [address] Dr. Hollie Aldridge Monocytes/100 WBC (Bld) 7.0 % Normal 1.7-12.0 [facility] Comment on above: Performed By: #### C BC #### [facility] [address] [place] [address] Dr. Hollie Aldridge NEUT # 3.1 103/ul Normal 1.4-6.5 [facility] Comment on above: Performed By: #### C BC #### [facility] [address] [place] [address] Dr. Hollie Aldridge Neutrophils/100 WBC (Bld) 52.1 % Normal 43.0-75.0 [facility] Comment on above: Performed By: #### C BC #### [facility] [address] [place] [address] Dr. Hollie Aldridge Platelet mean volume (Bld) [Entitic vol] 10.1 fL Normal 9.5-13.5 [facility] Comment on above: Performed By: #### C BC #### [facility] [address] [place] [address] Dr. Hollie Aldridge PLT 238 103/ul Normal 150-450 [facility] Comment on above: Performed By: #### C BC #### [facility] [address] [place] [address] Dr. Hollie Aldridge RBC 4.20 106/ul Normal 4.20-5.40 [facility] Comment on above: Performed By: #### C BC #### [facility] [address] [place] [address] Dr. Hollie Aldridge WBC 5.9 103/ul Normal 4.0-11.0 [facility] Comment on above: Performed By: #### C BC #### [facility] [address] [place] [address] Dr. Hollie Aldridge GLYCOHEMOGLOBIN A1Con 2021 ADA RECOMMENDATION SEE BELOW Normal [facility] Comment on above: Result Comment: ADA RECOMMENDED LIMIT 4.0 - 6.0 ADA THERAPEUTIC TARGET < 7.0 ACTION SUGGESTED > 7.0 Performed By: #### A 1C #### [facility] [address] [place] [address] Dr. Hollie Aldridge Glucose [Mass/Vol] 120 mg/dL Normal [facility] Comment on above: Performed By: #### A 1C #### [facility] [address] [place] [address] Dr. Hollie Aldridge HbA1c (Bld) [Mass fraction] 5.8 % Normal 4.5-6.2 [facility] Comment on above: Performed By: #### A 1C #### [facility] [address] [place], [place] [id number] Dr. Hollie Aldridge IRONon 02-20-2022 Iron [Mass/Vol] 76.0 ug/dL Normal 50.0-170.[address] [facility] Comment on above: Performed By: #### I RAOUL ROWE #### [facility] [address] [address] [address] Hollie Aldridge LIPID PROFILEon 02-20-2022 CHOL-HDL RATIO NORM SEE BELOW Normal [facility] Comment on above: Result Comment: 3.3 - 4.4 LOW RISK 4.4 - 7.1 AVERAGE RISK 7.1 - 11.0 MODERATE RISK >11.0 HIGH RISK Performed By: #### C MP, TSH, LIPID ####[facility] [id number] [address]Dr. Hollie Aldridge Cholesterol [Mass/Vol] 199 mg/dL Normal <=200 [facility] Comment on above: Performed By: #### C MP, TSH, LIPID ####[facility] [id number] [address]Dr. Hollie Aldridge Cholesterol in HDL [Mass/Vol] 35 mg/dL Critically low 40-60 [facility] Comment on above: Performed By: #### C MP, TSH, LIPID ####[facility] [id number] [address]Dr. Hollie Aldridge Cholesterol in LDL [Mass/Vol] 127.2 mg/dL Normal [facility] Comment on above: Performed By: #### C MP, TSH, LIPID ####[facility] [id number] [address]Dr. Hollie Aldridge Cholesterol.total/Cho lesterol in HDL [Mass ratio] 5.7 {ratio} Normal [facility] Comment on above: Performed By: #### C MP, TSH, LIPID ####[facility] [id number] [address]Dr. Hollie Aldridge HDL NORMAL > or = 60 mg/dl - LO W CARDIOVASCULAR RISK <40 mg/dl - HIGH CARDIOVASCULAR RISK Normal [facility] Comment on above: Performed By: #### C MP, TSH, LIPID ####[facility] [id number] [place], [place] [address]Pn. Hollie Aldridge LDL CALC NORMAL SEE BELOW Normal [facility] Comment on above: Result Comment: <100 mg/dl OPTIMAL 100 - 129 mg/dl NEAR OR ABOVE OPTIMAL 130 - 159 mg/dl BORDERLINE HIGH 160 - 189 mg/dl HIGH >190 mg/dl VERY HIGH Performed By: #### C MP, TSH, LIPID ####[facility] [id number] [place], [place] [address]Fg. Hollie Aldridge Triglyceride [Mass/Vol] 184 mg/dL Critically high <=150 [facility] Comment on above: Performed By: #### C MP, TSH, LIPID ####[facility] [id number] [place], [place] [address]Vl. Hollie Aldridge VLDL CALC 36.8 mg/dL Normal [facility] Comment on above: Performed By: #### C MP, TSH, LIPID ####[facility] [id number] [place], [place] [address]Kg. Hollie Aldridge MG MAMM SCREEN 3D MARSHALL CADon 02-20-2022 MG MAMM SCREEN 3D MARSHALL CAD Patient: MICHELLE SALMERON Exam Date: 02/20/2022 : 1970 Gender:F Ordering : DR SEBASTIEN ELIZONDO . Admission #: [id number] Family : Order #: [id number] CLICK HERE TO VIEW EXAM RADIOLOGY REPORT [...] leukemia cancer at age 56. LOCATION: [facility] BREAST COMPOSITION: Scattered areas fibroglandular density. FINDINGS: [...] Marin MD on 02/20/2022 at 11:48 Normal [facility] PROF 14(COMP METB)on 022 Albumin [Mass/Vol] 4.1 g/dL Normal 3.4-5.0 [facility] Comment on above: Performed By: #### C MP, TSH, LIPID #### [facility] Laboratory [address] [place] [address] Dr. Hollie Aldridge Albumin/Globulin [Mass ratio] 1.1 {ratio} Normal [facility] Comment on above: Performed By: #### C MP, TSH, LIPID #### [facility] Laboratory [address] [place] [address] Dr. Hollie Aldridge ALP [Catalytic activity/Vol] 45 U/L Critically low 46-116 [facility] Comment on above: Performed By: #### C MP, TSH, LIPID #### [facility] Laboratory [address] [place] [address] Dr. Hollie Aldridge ALT [Catalytic activity/Vol] 70 U/L Critically high 14-59 [facility] Comment on above: Performed By: #### C MP, TSH, LIPID #### [facility] Laboratory [address] [place] [address] Dr. Hollie Aldridge Anion gap [Moles/Vol] 17.3 mmol/L Normal [facility] Comment on above: Performed By: #### C MP, TSH, LIPID #### [facility] [address] [place] [address] Dr. Hollie Aldridge AST [Catalytic activity/Vol] 39 U/L Critically high 15-37 [facility] Comment on above: Performed By: #### C MP, TSH, LIPID #### [facility] [address] [place] [address] Dr. Hollie Aldridge Bilirubin [Mass/Vol] 0.3 mg/dL Normal 0.2-1.0 [facility] Comment on above: Performed By: #### C MP, TSH, LIPID #### [facility] [address] [place] [address] Dr. Hollie Aldridge Calcium [Mass/Vol] 9.2 mg/dL Normal 8.5-10.1 [facility] Comment on above: Performed By: #### C MP, TSH, LIPID #### [facility] [address] [address] [address] Hollie Aldridge Chloride [Moles/Vol] 109 mmol/L Critically high 98-107 [facility] Comment on above: Performed By: #### C MP, TSH, LIPID #### [facility] [address] [address] [address] Hollie Aldridge CO2 [Moles/Vol] 21.0 mmol/L Normal 21.0-32.0 [facility] Comment on above: Performed By: #### C MP, TSH, LIPID #### [facility] [address] [place] [address] Dr. Hollie Aldridge Creatinine [Mass/Vol] 1.01 mg/dL Normal 0.55-1.02 [facility] Comment on above: Performed By: #### C MP, TSH, LIPID #### [facility] [address] [place] [address] Dr. Hollie Aldridge EGFR-AF VENEZUELAN >60 Normal >=60 [facility] Comment on above: Performed By: #### C MP, TSH, LIPID #### [facility] [address] [place] [address] Dr. Hollie Aldridge EGFR-NON AF VENEZUELAN 57 mL/min/1.73m2 Critically low >=60 [facility] Comment on above: Performed By: #### C MP, TSH, LIPID #### [facility] [address] [place] [address] Dr. Hollie Aldridge Globulin (S) [Mass/Vol] 3.7 g/dL Normal [facility] Comment on above: Performed By: #### C MP, TSH, LIPID #### [facility] [address] [place] [address] Dr. Hollie Aldridge Glucose [Mass/Vol] 149 mg/dL Critically high 74-106 [facility] Comment on above: Performed By: #### C MP, TSH, LIPID #### [facility] [address] [place], [place] [address] Dr. Hollie Aldridge Potassium [Moles/Vol] 4.3 mmol/L Normal 3.5-5.1 [facility] Comment on above: Performed By: #### C MP, TSH, LIPID #### [facility] [address] [place] [address] Dr. Hollie Aldridge Protein [Mass/Vol] 7.8 g/dL Normal 6.4-8.2 [facility] Comment on above: Performed By: #### C MP, TSH, LIPID #### [facility] [address] [place] [address] Dr. Hollie Aldridge Sodium [Moles/Vol] 143 mmol/L Normal 136-145 [facility] Comment on above: Performed By: #### C MP, TSH, LIPID #### [facility] [address] [place] [address] Dr. Hollie Aldridge Urea nitrogen [Mass/Vol] 22.0 mg/dL Critically high 7.0-18.0 [facility] Comment on above: Performed By: #### C MP, TSH, LIPID #### [facility] [address] [place] [address] Dr. Hollie Aldridge Urea nitrogen/Creatinine [Mass ratio] 21.8 mg/mg Normal [facility] Comment on above: Performed By: #### C MP, TSH, LIPID #### [facility] [address] [place] [address] Dr. Hollie Aldridge TSHon 02-20-2022 TSH 3.013 uIU/mL Normal 0.358-3.740 [facility] Comment on above: Performed By: #### C MP, TSH, LIPID #### [facility] [address] [place] [address] Dr. Hollie Aldridge VITAMIN D 25 OHon 02-20-2022 VIT D 25-OH 33.3 ng/mL Normal [facility] Comment on above: Performed By: #### I JAE, VITAD #### [facility] [address] [place] [address] Dr. Hollie Aldridge VIT D RANGES SEE BELOW Normal [facility] Comment on above: Result Comment: <20 ng/mL Vit D deficient 20 - <30 ng/mL Vit D insufficient 30 - 100 ng/mL Vit D sufficient >100 ng/mL Potential Toxicity Performed By: #### I JAE, VITAD #### [facility] [address] [place], [place] [address] Dr. Hollie Aldridge Outside Colonoscopyon 2021 Outside Colonoscopy [id number] .[id number]:127 Normal [facility] Pathology Noteon 02-09-2022 Pathology Note [id number] 1.00CD:127 Normal [facility] POINT OF CARE GLUCOSEon 01-25 Glucose [Mass/Vol] 155 mg/dL Critically high 74-106 [facility] Comment on above: Performed By: #### P OCGLUC ####[facility] [address] [place], [place] [address]BkDr. Hollie Aldridge Lab Reportson 02-06-2022 Lab Reports [id number] .[id number]:127 Normal [facility] 01-25 SARS-CoV-2 (COVID-19) RNA ESTRELLITA+probe Ql (Unsp spec) Not detected Normal NOT DETECTED [facility] Comment on above: Result Comment: This test is not yet approved or cleared by the [place] FDA. When there are no FDA-approved or cleared tests available, and other criteria are met, FDA can make tests available under an emergency access mechanism called an Emergency Use Authorization (EUA). The EUA for this test is supported by the [place] of Health and Human Service's (HHS's) declaration [...] consistent with SARS-CoV-2. Performed By: #### [facility] ####[facility] [place] [facility] [id number] [place], [place] [address]FyEsther Aldridge Consent for Procedure/Surger yon 01-17-2022 Consent for Procedure/Surgery [id number]:127 Normal [facility] Vital Signs Date Time Vital Sign Value Performing Clinician Latisha hayes 01-16-2022 13:11-0400 Blood Pressure Location Genaro NILL General Surgery [place] 01-16-2022 13:11-0400 Diastolic blood pressure 90 mm[Hg] Genaro NILL [facility] [place] 01-16-2022 13:11-0400 Heart rate 76 /min Genaro NILL General Surgery [place] 01-16-2022 13:11-0400 Respiratory rate 16 /min Genaro NILL [facility] [place] 01-16-2022 13:11-0400 Systolic blood pressure 128 mm[Hg] Genaro NILL [facility] [place] Encounters Encounter Date Encounter Type Care Provider Facility Start: 08-31-[address] SEBASTIEN ELIZONDO . Facili ty:[facility] Start: 02-26-2022 End: 02-26-2022 ambulatory KATIANA PACHECO Facility:[facility] Start: 02-24-[address] SEBASTIEN ELIZONDO . Facili ty:[facility] Start: 02-22-2022 Encounter for genera l adult medical examination without abnormal findings DR SEBASTIEN ELIZONDO . [facility] [place] [facility] Start: 02-21-2022 End: 02-22-2022 ambulatory Genaro ORTEGA Facility:[facility] Start: 02-21-2022 End: 02-21-2022 Patient encounter procedure Genaro R NILL General Surgery Nill/Said [place] Start: 02-20-2022 End: 02-21-[address] SEBASTIEN ELIZONDO . Facility:[facility] Start: 02-20-2022 End: 02-21-2022 Encounter for general adult medical examination without abnormal findings DR SEBASTIEN ELIZONDO . Facility:[facility] Start: 02-09-2022 Encounter for preprocedural laboratory examination DR GENARO ORTEGA . [facility] Start: 02-07-2022 End: 02-08-2022 ambulatory Genaro ORTEGA Facility:[id number] Start: 02-03-2022 End: 02-04-[address] GENARO ORTEGA . Facility:[facility] Start: 02-03-2022 End: 02-04-2022 Encounter for preprocedural laboratory examination DR GENARO ORTEGA . Facility: Start: 01-16-2022 End: 01-17-2022 ambulatory Genaro ORTEGA [facility] Start: 01-16-2022 End: 01-16-2022 Patient encounter procedure Genaro Sam NILWill General Surgery Nill/Said Radha Start: 12-28-[address] SEBASTIEN ELIZONDO . Facili ty: Start: 12-22-2021 ambulatory Genaro ORTEGA Facility :[facility] Procedures Date Procedure Procedure Detail Performing Clinician Start: 02-07-2022 Colonoscopy Genaro NI LL Start: 03-12-2011 Colonoscopy Genaro NI LL Start: 05-27-1995 section Jessenia LAZOL Start: 05-27-1992 section Jessenia LAZOL Cholecystectomy Genaro LAZOL Payers Date Payer Category Payer Unknown [id number] 2.16.8 [id number] 1968 Unknown [id number] 2.16.8 [id number] 1968 Unknown [id number] 2.16.8 [id number] 1968 Unknown [id number] 2.16.84 [id number] 1968 Unknown [id number] 2.16.84 [id number] 1968 Unknown [id number] 2.16.84 [id number] 1968 Unknown [id number] 2.16.84 [id number] 1968 Unknown [id number] 2.16.84 [id number] 1968 Unknown [id number] 2.16.84 [id number] 1968 Unknown [id number] 2.16.84 [id number] 1961 Self-pay [id number] 1961 Unknown [id number] Unknown Self Pay [id number] [id number] Unknown [id number] 2.16.8 [id number] Social History Date Type Detail Facility Tobacco smoking stat [facility] Unknown if ever smoked [facility] Start: 1970 Sex Assigned At Female [facility] Start: 01-16-2022 Tobacco smoking status Never s moked tobacco (finding) [facility] [place] Tobacco smoking status Never Gener al [facility] [place] Sex Assigned At Female Gen[facility] [place] Goals Date Patient Goal Desired Activity /State [...] good condition. CC: Sebastien Elizondo M.D. [facility] [place] [facility] Clinical Note 01-16-2022 Note Date & Type [...] failure syndrome: F (more content not included)... [facility] Comment on above: Result Comment: Elec tronically Signed By: CATY BUSTAMANTE, Genaro Amin\Date and Time Signed: 01/16/22 13:37 EDT Evaluation + Plan note Note Date & Type Note Facility Evaluation + Plan note No data available for this section [facility] [place] [facility] Discharge instructions Note Date & Type Note Facility Hospital Discharge instructions No data available for this section [facility] [place] Progress note Note Date & Type Note Facility Progress note No data available for this section [facility] [place] Advance Directives No Advanced Directives Records Found Advance Directive Response Recorded Date/ Time Advance Directives No October 29 10:04am Assessments No Assessments Information Available Summary Purpose Family History No Family History Records FoundNo Family History Records FoundNo Family History Records FoundNo Family History Records Found Additional Source Comments Care Team (unrecognized sect ion and content) Personnel Name: Sebastien Elizondo MD Address: [address] [place] [address] Personnel Name: Sebastien Elizondo MD Address: [address] [place] [address] INFORMATION SOURCE (unrecogn ized section and content) DATE CREATED AUTHOR 02/23/2022 [facility] DATE CREATED AUTHOR AUTHOR'S ORGANIZ ATION 02/24/2022 [facility] DATE CREATED AUTHOR AUTHOR'S ORGANIZ ATION 09/01/2022 [facility] DATE CREATED AUTHOR AUTHOR'S ORGANIZ ATION 05/18/2023 [facility] FOR RECORDS PERTAINING TO [...] BE BASED ON THE PRIMARY CLINICAL RECORDS. [facility] provides no warranty or guarantee of the accuracy or completeness of information in this document.
== END 2025-01-29 09:12 | disposition home or self-care (01) ==
LOC: LAB 09:14
PROVIDERS: PCP Family Medicine; Visit Provider Family Medicine
DX: R07.89 Other chest pain (principal)
CPT/HCPCS: 71046; 71110